=== PATIENT | female | born 1965 | race Caucasian/White ===

== ENCOUNTER 2018-12-07 16:49 | Emergency (ER) | payer BC, SELFPAY ==
--- OUTSIDE RECORDS SUMMARY | 2018-12-07 16:51 | XMS REPORT | Clinical Summary ---
:1965 Author Organization [facility] [employer] Address [address] [place] [address] Care Team Providers Name Role Phone Ondina, Frantz Alvarez MD Primary Care Provider Allergies Active Allergy Reactions Severity Noted Date Comments Pregabalin 02/16/2017 Penicillins 02/16/2017 Hydroxychloroquine 02/16/2017 Medications Medication Sig Dispensed Refills Start Date End Date Status acetaZOLAMIDE (DIAMOX) Take 250 mg by 0 Active 250 MG tablet mouth 2 (two) times a day. lisinopril Take 40 mg by 0 Active (PRINIVIL,ZESTRIL) 40 mouth 2 (two) mg tablet times a day. amitriptyline (ELAVIL) Take 10 mg by 0 Active 10 MG tablet mouth nightly. Take 2 tablet by mouth nightly DULoxetine (CYMBALTA) Take 60 mg by 0 Active 60 MG capsule mouth daily. Take 2 capsules by mouth daily Active Problems Problem Noted Date Hypertension 02/17/2017 Depression 02/17/2017 Connective tissue disease 02/17/2017 Morbid obesity with body mass index (BMI) of 45.0 to 49.9 in adult 02/17/2017 Social History Tobacco Use Types Packs/Day Years Used Date Never Smoker Alcohol Use Drinks/Week oz/Week Comments No Sex Assigned at Date Recorded Not on file Job Start Date Occupation Industry Not on file Not on file Not on file Travel History Travel Start Travel End No recent travel history available. Last Filed Vital Signs Not on file Plan of Treatment Health Maintenance Due Date Last Done Comments CERVICAL CANCER SCREENING 1985 BREAST CANCER SCREENING 2014 COLON CANCER SCREENING 2014 SHINGLES VACCINES (#1) 2014 INFLUENZA VACCINE 04/01/2019 Results Not on fileafter 12/06/2017 Insurance Payer Benefit Plan / Group Subscriber ID Type Phone Address BCBS BCBS CHOICE PPO/FEDERAL EMPL PPO xxxxxxxxxxxx PPO Advance Directives Patient has advance care planning documents, and code status on file. For more information, please contact:Joey [id number] [place] [address] Code Status Date Activated Date Inactivated Comments Full Code 02/16/2017 7:00 PM 02/19/2017 5:59 PM Code Status decision reached by: Patient
--- OUTSIDE RECORDS SUMMARY | 2018-12-07 16:52 | XMS REPORT | Continuity of Care Document ---
:1965 Author Organization Interface Problems Problem Status Onset Classification Date Comments Source Date Reported RECCURRENT Active [facility] PITUTARY ADENOMA [address] [place] [address] Center POSSIBLE CSF LEAK Active [address] dm Active Problem 04/15/2016 [facility] HTN (<span Active Problem 04/15/2016 [facility] ID="[id number]" Medical >Confirmed</span> Center ) Sleep apnea Active Problem 04/15/2016 [facility] CEREBROSPINAL Active [facility] FLUID LEAK [facility] Medications Medication Details Route Status Patient Ordering Order Source Instructions Provider Date meclizine 25 mg 25 mg=1 tab, Active [facility] oral tablet PO, TID, PRN 016 Medical for dizziness, Center X 20 day, # 60 tab, 0 Refill(s) acetaZOLAMIDE 250 mg=1 tab, Active [place] 250 mg oral PO, BID, # 120 016 Medical tablet tab, 0 Center Refill(s) Docusate Sodium 100 mg=1 cap, Active [place] 100 MG Oral PO, PRN, PRN 016 Medical Capsule as needed for Center constipation, # 50 cap, 0 Refill(s) Ondansetron 4 4 mg, PO, Q8H, Active [place] MG Oral Tablet PRN Nausea, X 016 Medical [Zofran] 15 day, # 45 Center tab, 0 Refill(s) Acetaminophen 2 tab, PO, Active [place] 300 MG / Q4H, PRN Pain 016 Medical Codeine Score 4-6, X 7 Center Phosphate 30 MG day, # 50 tab, Oral Tablet 0 Refill(s) [Tylenol with Codeine #3] heparin sodium, 5,000 unit, 1 No Longer [facility] porcine 2500 mL, Route: Active 016 Medical UNT/ML SUB-Q, Drug Center Injectable form: INJ, Solution Q8H, Dosing Weight 118.182, kg, Start date: 04/11/16 16:00:00 CDT, Duration: 30 day, Stop date: 05/11/16 8:00:00 CDTNotes: porcine heparin Morphine 1 mg, 0.5 mL, No Longer [facility] Route: IVP, Active [facility] Drug form: Center INJ, Q2H, Dosing Weight 118.182, kg, PRN Pain Score 7-10, Start date: 04/10/16 17:22:00 CDT, Duration: 30 day, Stop date: 05/10/16 17:21:00 CDTNotes: (Same as:MORPhine Sulfate) Acetaminophen 2 tab, Route: No Longer [facility] 325 MG / PO, Drug Form: Active [facility] Hydrocodone TAB, Dosing Center Bitartrate 10 Weight MG Oral Tablet 118.182, kg, Q4H, PRN Pain Score 4-6, Start date: 04/10/16 17:22:00 CDT, Duration: 30 day, Stop date: 05/10/16 17:21:00 CDTNotes: Do not exceed 4gm/day of acetaminophen. (Same as: [place]yer 325/10) Streptococcus 0.5 mL, Route: Inactive [facility] pneumoniae IM, Drug Form: [facility] serotype 1 INJ, Daily, Center capsular Start date: antigen 04/10/16 diphtheria 9:00:00 CDT, [id number] protein Duration: 1 conjugate doses or vaccine / times, Stop Streptococcus date: 04/10/16 pneumoniae 9:00:00 serotype 14 CDTNotes: capsular Lightly roll antigen vial (DO NOT diphtheria SHAKE) before [id number] protein administration conjugate . (Same as: vaccine / Prevnar 13) Streptococcus pneumoniae serotype 18C capsular antigen d Zofran 4 mg, Route: No Longer [facility] IV, Q8H, Active 016 Medical Dosing Weight Center 118.182, kg, Start date: 04/10/16 0:00:00 CDT, Duration: 30 day, Stop date: 05/09/16 16:00:00 CDT Saline Flush 10 ml, Route: No Longer [facility] 0.9% IVP, Drug Active 016 Medical Form: INJ, Center Dosing Weight 118.182, kg, Q12H, Start date: 04/09/16 21:00:00 CDT, Duration: 30 day, Stop date: 05/09/16 9:00:00 CDTNotes: (Same as: BD Posiflush) Senna 8.6 mg 8.6 mg, 1 tab, No Longer Gael oral tablet Route: PO, Active [facility] Drug Form: Center TAB, Dosing Weight 118.182, kg, Q12H, Start date: 04/09/16 21:00:00 CDT, Duration: 30 day, Stop date: 05/09/16 9:00:00 CDTNotes: (Same as: Senokot) Docusate 100 mg, 1 cap, No Longer [facility] Route: PO, Active [facility] Drug form: Center CAP, Q12H, Dosing Weight 118.182, kg, Start date: 04/09/16 21:00:00 CDT, Duration: 30 day, Stop date: 05/09/16 9:00:00 CDTNotes: (Same as: Colace) Acetaminophen 1 tab, Route: Inactive [facility] 325 MG / PO, Drug Form: [facility] Hydrocodone TAB, Dosing Center Bitartrate 10 Weight MG Oral Tablet 118.182, kg, Q4H, Start date: 04/09/16 20:00:00 CDT, Duration: 30 day, Stop date: 05/09/16 16:00:00 CDTNotes: (Same as: [place]yer 325/10) chlorhexidine 15 mL, Route: Inactive [facility] gluconate 1.2 Swab Mouth, [facility] MG/ML Mouthwash Q4H, Drug Center form: LIQ, Start date: 04/09/16 20:00:00 CDT, Duration: 30 day, Stop date: 05/09/16 16:00:00 CDTNotes: (Same As: Peridex) Zofran 4 mg, 2 mL, No Longer [facility] Route: IV, Active [facility] Drug form: Center INJ, Q8H, Dosing Weight 118.182, kg, PRN as needed for nausea/vomitin g, Start date: 04/09/16 18:37:00 CDT, Duration: 30 day, Stop date: 05/09/16 18:36:00 CDTNotes: (Same as: Zofran) MEDICATION WASTE Product Size: 4 mg Product Wasted: ___ mg sodium chloride 1,000 mL, No Longer [facility] 0.9% 1000 ml Rate: [address] [place] [address] INJ 1,000 mL ml/hr, Infuse Center over: 13.3 hr, Route: IV, Dosing Weight 118.182 kg, Total Volume: 1,000, Start date: 04/09/16 18:37:00 CDT, Duration: 30 day, Stop date: 05/09/16 18:36:00 CDT Dextrose 50% 6.25 gm, 12.5 No Longer [facility] Syringe mL, Route: Active [address] [place] [address] IVP, Drug Center Form: INJ, Dosing Weight 118.182, kg, PRN, PRN Abnormal Lab Result, Start date: 04/09/16 18:33:00 CDT, Duration: 30 day, Stop date: 05/09/16 18:32:00 CDT Regular 3 unit, 0.03 No Longer [facility] Insulin, Human mL, Route: Active [address] [place] [address] 100 UNT/ML SUB-Q, Drug Center Injectable form: SOLN, Solution PRN, Dosing Weight 118.182, kg, PRN Abnormal Lab Result, Start date: 04/09/16 18:33:00 CDT, Duration: 30 day, Stop date: 05/09/16 18:32:00 CDTNotes: (Same as: Humulin R) Roll in palms of hands gently; Do not shake vigorously. "single patient use only" (Restricted to patients requiring a dose > 60 units) WASTE: F/P - Black; E - Municipal Trash Bin Stable for 28 days at room temperature Expires in days from Date Zofran 2 mg, Route: Inactive [facility] PO, Drug form: [facility] TAB, PRN, Center Dosing Weight 118.182, kg, PRN Nausea, Priority: STAT, Start date: 04/09/16 18:12:00 CDT, Stop date: 05/09/16 18:11:00 CDT Insulin regular 99 mL, Rate: Inactive [facility] 100 unit + Start at 0.05 016 Medical sodium chloride units/kg/hour- Center 0.9% INJ 99 mL , Dosing Weight 118.182, kg, Route: IVPB, Total Volume: 100, Start Date: 04/09/16 18:10:00 CDT, Duration: 30 day, Stop date: 05/09/16 18:09:00 CDT, Replace Every: 24 hrNotes: (Same as: Humulin R and NovoLIN R) Dextrose 50% 25 gm, 50 mL, Inactive [facility] Syringe Route: IVP, [facility] Drug Form: Center INJ, Dosing Weight 118.182, kg, PRN, PRN Abnormal Lab Result, Start date: 04/09/16 18:10:00 CDT, Duration: 30 day, Stop date: 05/09/16 18:09:00 CDT Saline Flush 10 ml, Route: No Longer [facility] 0.9% IVP, Drug Active 016 Medical Form: INJ, Center Dosing Weight 118.182, kg, PRN, PRN Line Flush, Start date: 04/09/16 18:10:00 CDT, Duration: 30 day, Stop date: 05/09/16 18:09:00 CDTNotes: (Same as: BD Posiflush) Acetaminophen 1 tab, Route: No Longer [facility] 325 MG / PO, Drug Form: Active 016 Medical Hydrocodone TAB, Dosing Center Bitartrate 5 MG Weight Oral Tablet 118.182, kg, Q4H, PRN Pain Score 1-3, Start date: 04/09/16 18:10:00 CDT, Duration: 30 day, Stop date: 05/09/16 18:09:00 CDTNotes: (Same as: Sawyer 325/5) Labetalol 20 mg, 0.5 mL, No Longer [facility] Route: PO, Active 016 Medical Drug form: Center SUSP, PRN, Dosing Weight 118.182, kg, PRN Hypertension, Priority: STAT, Start date: 04/09/16 18:09:00 CDT, Stop date: 05/09/16 18:08:00 CDTNotes: Labetalol 300mg tab #16. Refrigerate. Shake well before using. Give with food. (Same as:Normodyne, Trandate) Compounded Product - formulation not commercially available Phenergan 25 mg, Route: Inactive [facility] IVPB, ONCE, 016 Medical Dosing Weight Center 118.182, kg, Priority: STAT, Start date: 04/09/16 17:53:00 CDT, Stop date: 04/09/16 17:53:00 CDT Dilaudid 2 mg, Route: Inactive [facility] IV, ONCE, 016 Medical Dosing Weight Center 118.182, kg, Start date: 04/09/16 17:53:00 CDT, Stop date: 04/09/16 17:53:00 CDT Dilaudid 1 mg, Route: Inactive [facility] IV, ONCE, 016 Medical Dosing Weight Center 118.182, kg, Start date: 04/09/16 15:55:00 CDT, Stop date: 04/09/16 15:55:00 CDT Dilaudid 0.5 mg, 0.25 Inactive [facility] mL, Route: 016 Medical IVP, Drug Center form: INJ, ONCE, Dosing Weight 118.182, kg, Priority: STAT, Start date: 04/09/16 14:11:00 CDT, Stop date: 04/09/16 14:11:00 CDTNotes: Same as: Dilaudid Ibuprofen 600 mg, 1 tab, Inactive [facility] Route: PO, 016 Medical Drug form: Center TAB, ONCE, Dosing Weight 118.182, kg, Priority: STAT, Start date: 04/09/16 14:11:00 CDT, Stop date: 04/09/16 14:11:00 CDTNotes: (Same as: Motrin) "Do Not Crush" Take with food. Sodium Chloride 1,000 mL, 500 Inactive [facility] 0.154 MEQ/ML ml/hr, Infuse [facility] Medical Injectable Over: 1 hr, Center Solution Route: IV, ONCE, Priority: STAT, Dosing Weight 118.182 kg, Start date: 04/09/16 11:18:00 CDT, Duration: 1 doses or times, Stop date: 04/09/16 11:18:00 CDT Allergies, Adverse Reactions, Alerts Substance Category Reaction Severity Reaction Status Date Comments Source type Reported penicillins Assertion Drug Active [facility] Plaquenil Assertion Drug Active [facility] Immunizations Immunization Date Given Site Status Last Comments Source Updated pneumococcal 04/10/2016 Right completed [place] [facility] 13-valent vaccine Deltoid [facility] Results Order Name Results Value Reference Date Interpretation Comments Source Range ENDOCRINOLO Prolactin 14.1 ng/mL 04/12 [facility] GY Lvl /2015 [facility] ENDOCRINOLO LH 29.18 04/12 [facility] GY mIU/mL [facility] ENDOCRINOLO FSH 44.0 mIU/mL 04/12 [facility] GY [facility] Sinus wo Sinus wo EXAM: CT SINUS WITHOUT CONTRAST 04/10 [facility] contrast CT contrast CT /2015 [facility] DATE: 04/10/2016 12:37 AM CDT Read by: Christos Laurent MD Dictated Date/time: 04/10/16 14:29 Electronically Signed by: Christos Laurent MD 04/10/16 15:12 FINAL REPORT INDICATION: 50 years old Female patient with history of Headache(s). COMPARISON: MRI brain dated 03/22/2016. TECHNIQUE: Axial noncontrast CT images of the sinuses, with coronal and sagittal reformats. FINDINGS: There is a lucent lesion within the basisphenoid and replacement of the right sphenoid sinus extending into the floor of the sella turcica resulting in destruction of the sellar floor. Based on enhancem ent of the lesion in the postcontrast sequences in the MRI from 03/22/2016 and diffusion restriction, this finding is concerning for malignancy. The paranasal sinuses are clear. The nasal septum is midline in position. The ostiomeatal complexes are patent bilaterally. The frontoethmoidal and sphenoethmoidal recesses are patent bilaterally. No ma stoid effusion is identified. The orbits are unremarkable. IMPRESSION: 1. Lytic lesion within the basisphenoid with displacement of the right sphenoid sinus and destruction of the floor of sella turcica. Based on enhancement of the lesion in the postcontrast sequences in the MRI from 03/22/2016 and diffusion restriction this finding is concerning for malignancy. Tissue sampling is recommended. BACTERIAL - MRSA by PCR Negative 04/10 [facility] SEROLOGY [facility] (04/09/16 7:33 PM) [place] [facility] Antibody Negative 04/09 [facility] RESULTS [facility] (04/09/16 9:54 AM) [place] [facility] ABO/Rh O NEG 04/09 [facility] RESULTS /2015 [facility] CARDIAC Troponin-I null 0.00 - 04/09 [facility] ENZYMES 0.40 /2015 [facility] CHEM PANEL eGFR 27 04/09 Result Comment: The eGFR is calculated using the CKD-EPI formula. In most young, healthy individuals the eGFR will be >90 mL/ min/1.73m2. The eGFR declines with age. An eGFR of 60-89 may be normal in [facility] mL/min/1.73 /2015 some populations, particularly the elderly, for whom the CKD-EPI formula has not been extensively validated. Use of the eGFR is not recommended in the following populations: [place] [address] Center Individuals with unstable creatinine concentrations, including patients and those with serious co-morbid conditions. Patients with extremes in muscle mass or diet. The data above are obtained from the National Kidney Disease Education Program (NKDEP) which additionally recommends that when the eGFR is used in patients with extremes of body mass index for purposes of drug dosing, the eGFR should be multiplied by the estimated BMI. CHEM PANEL Glucose Lvl 84 mg/dL 70 - 99 / [facility] CHEM PANEL Chloride Lvl 103 meq/L 95 - 109 04/09 [facility] CHEM PANEL Potassium 4.5 meq/L 3.5 - 5.1 04/09 [facility] Lvl /2015 [facility] CHEM PANEL BUN 56 mg/dL 7 - 22 04/09 [facility] CHEM PANEL Sodium Lvl 140 meq/L 135 - 145 04/09 [facility] CHEM PANEL Creatinine 2.09 mg/dL 0.50 - / [facility] Lvl 1.40 [facility] CHEM PANEL Calcium Lvl 8.8 mg/dL 8.5 - 10.5 04/09 [facility] CHEM PANEL CO2 30 meq/L 24 - 32 04/09 [facility] CHEM PANEL AGAP 11.5 meq/L 10.0 - 04/09 [place] 20.0 [facility] HEMATOLOGY Monocytes # 0.3 K/CMM 0.0 - 0.8 04/09 [facility] HEMATOLOGY Lymphocytes 1.4 K/CMM 1.0 - 5.5 04/09 [facility] # /2015 [facility] HEMATOLOGY Segs-Bands # 4.0 K/CMM 1.5 - 8.1 04/09 [facility] HEMATOLOGY Basophils 0.6 % 0.0 - 1.0 04/09 [facility] HEMATOLOGY Segs 67.3 % 45.0 - 04/09 [place] 75.0 /2015 [facility] HEMATOLOGY Eosinophils 3.5 % 0.0 - 4.0 04/09 [facility] HEMATOLOGY Monocytes 4.8 % 2.0 - 12.0 04/09 [facility] HEMATOLOGY Lymphocytes 23.8 % 20.0 - 08 [place] 40.0 /2015 [facility] HEMATOLOGY Eosinophils 0.2 K/CMM 0.0 - 0.5 04/09 /2015 [facility] HEMATOLOGY Platelet 266 K/CMM 133 - 450 04/09 [facility] HEMATOLOGY MPV 8.0 fL 7.4 - 10.4 04/09 [facility] HEMATOLOGY WBC 5.9 K/CMM 3.7 - 10.4 04/09 [facility] HEMATOLOGY RBC 4.03 M/CMM 4.20 - 04/09 [place] 5.40 /2015 [facility] HEMATOLOGY RDW 18.9 % 11.5 - 08 14.5 [facility] HEMATOLOGY MCHC 31.6 g/dL 32.0 - 04/09 36.0 [facility] HEMATOLOGY MCH 25.7 pg 27.0 - 04/09 31.0 [facility] HEMATOLOGY MCV 81.4 fL 80.0 - 04/09 98.0 [facility] HEMATOLOGY Hct 32.8 % 36.0 - 04/09 48.0 2016 [facility] HEMATOLOGY Hgb 10.4 g/dL 12.0 - 04/09 [facility] 16.0 2016 [facility] Vital Signs Vital Sign Value Date Comments Source Systolic (mm Hg) 114 04/12/2016 [facility] Diastolic (mm Hg) 66 04/12/2016 [facility] Respitory Rate 18 04/12/2016 [facility] Heart Rate 57 04/12/2016 [facility] Temperature Oral (F) 97.7 F 04/12/2016 [facility] Systolic (mm Hg) 128 04/12/2016 [facility] Diastolic (mm Hg) 71 04/12/2016 [facility] Heart Rate 60 04/12/2016 [facility] Respitory Rate 16 04/12/2016 [facility] Temperature Oral (F) 97.7 F 04/12/2016 [facility] Temperature Oral (F) 98.1 F 04/12/2016 [facility] Heart Rate 64 04/12/2016 [facility] Respitory Rate 16 04/12/2016 [facility] Systolic (mm Hg) 103 04/12/2016 [facility] Diastolic (mm Hg) 65 04/12/2016 [facility] Weight 118.182 04/09/2016 [facility] BMI Calculated 47.65 04/09/2016 [facility] Height 157.48 cm 04/09/2016 [facility] Encounters Location Location Encounter Encounter Reason Attending ADM DC Status Source Details Type Number For Provider Date Date Visit [facility] [id number] [facility]ant[facility] 04/08 04/12 [facility] [place] [place] /2015 [facility] Procedures Procedure Code Date Perfomer Comments Source Appendectomy [id number] [facility] Excision of lesion [id number] [facility] pituitary gland [facility]
--- OUTSIDE RECORDS SUMMARY | 2018-12-07 16:53 | XMS REPORT | Summary of Care ---
:1965 Author Organization [facility] Address [address], [place] [address]- Encounter HQ Viri(BRIANNA) [id number] Date(s): 04/08/16 - 04/12/[address] Professional Services provided by [facility] [place] [address]- Discharge Disposition: Home or Self Care Attending Physician: Ezequiel Sim MD Admitting Physician: Ezequiel Sim MD Referring Physician: Frantz Nj MD Vital Signs Most recent to oldest 1 2 3 [Reference Range]: Height 157.48 cm (04/09/16 8:52 AM) Temperature Oral [96.4-99.1 97.7 DegF 97.7 DegF 98.1 DegF DegF] (04/12/16 7:47 AM) (04/12/16 3:44 AM) (04/11/16 11:30 PM) Blood Pressure [90-140/60-90 114/66 mmHg 128/71 mmHg 103/65 mmHg mmHg] (04/12/16 7:47 AM) (04/12/16 3:44 AM) (04/11/16 11:30 PM) Respiratory Rate [14-20 BRMIN] 18 BRMIN 16 BRMIN 16 BRMIN (04/12/16 7:47 AM) (04/12/16 3:44 AM) (04/11/16 11:30 PM) Peripheral Pulse Rate [60-100 57 bpm 60 bpm 64 bpm bpm] *LOW* (04/12/16 3:44 AM) (04/11/16 11:30 PM) (04/12/16 7:47 AM) Weight 118.182 kg (04/09/16 8:52 AM) Body Mass Index 47.65 m2 (04/09/16 8:52 AM) Problem List Condition Effective Dates Status Health Status Informant dm(Confirmed) Active HTN (hypertension)(Confirmed) Active Sleep apnea(Confirmed) Active Allergies, Adverse Reactions, Alerts Substance Reaction Severity Status penicillins Active Plaquenil Active Medications acetaminophen-hydrocodone 325 mg-10 mg oral tablet 1 tab, Route: PO, Drug Form: TAB, Dosing Weight 118.182, kg, Q4H, Start date: 20:00:00 CDT,Duration: 30 day, Stop date: 05/09/16 16:00:00 CDT Notes: (Same as: [place] 325/10) Start Date: 04/09/16 Stop Date: 04/09/16 Status: Canceledacetaminophen-hydrocodone 325 mg-10 mg oral tablet 2 tab, Route: PO, Drug Form: TAB, Dosing Weight 118.182, kg, Q4H, PRN Pain Score 4-6, Start date: 04/10/16 17:22:00 CDT, Duration: 30 day, Stop date: 05/10 17:21:00 CDT Notes: Do not exceed 4gm/day of acetaminophen. (Same as: [place] 325/10) Start Date: 04/10/16 Stop Date: 04/12/16 Status: Discontinuedacetaminophen-hydrocodone 325 mg-5 mg oral tablet 1 tab, Route: PO, Drug Form: TAB, Dosing Weight 118.182, kg, Q4H, PRN Pain Score 1-3, Start date: 04/09/16 18:10:00 CDT, Duration: 30 day, Stop date: 05/09 18:09:00 CDT Notes: (Same as: [place] 325/5) Start Date: 04/09/16 Stop Date: 04/12/16 Status: DiscontinuedacetaZOLAMIDE 250 mg oral tablet 250 mg=1 tab, PO, BID, # 120 tab, 0 Refill(s) Start Date: 04/12/16 Stop Date: 06/11/16 Status: Orderedchlorhexidine topical 0.12% liquid 15 mL, Route: Swab Mouth, Q4H, Drug form: LIQ, Start date: 04/09/16 20:00:00 CDT , Duration: 30 day, Stop date: 05/09/16 16:00:00 CDT Notes: (Same As: Peridex) Start Date: 04/09/16 Stop Date: 04/09/16 Status: CanceledDextrose 50% Syringe 6.25 gm, 12.5 mL, Route: IVP, Drug Form: INJ, Dosing Weight 118.182, kg, PRN, PRN Abnormal Lab Result, Start date: 04/09/16 18:33:00 CDT, Duration: 30 day, Stop date: 05/09/16 18:32:00 CDT Start Date: 04/09/16 Stop Date: 04/12/16 Status: DiscontinuedDextrose 50% Syringe 25 gm, 50 mL, Route: IVP, Drug Form: INJ, Dosing Weight 118.182, kg, PRN, PRN Abnormal Lab Result, Start date: 04/09/16 18:33:00 CDT, Duration: 30 day, Stop date: 05/09/16 18:32:00 CDT Start Date: 04/09/16 Stop Date: 04/12/16 Status: DiscontinuedDextrose 50% Syringe 12.5 gm, 25 mL, Route: IVP, Drug Form: INJ, Dosing Weight 118.182, kg, PRN, PRN Abnormal Lab Result,Start date: 04/09/16 18:33:00 CDT, Duration: 30 day, Stop date: 05/09/16 18:32:00 CDT Start Date: 04/09/16 Stop Date: 04/12/16 Status: DiscontinuedDextrose 50% Syringe 25 gm, 50 mL, Route: IVP, Drug Form: INJ, Dosing Weight 118.182, kg, PRN, PRN Abnormal Lab Result, Start date: 04/09/16 18:10:00 CDT, Duration: 30 day, Stop date: 05/09/16 18:09:00 CDT Start Date: 04/09/16 Stop Date: 04/09/16 Status: DiscontinuedDextrose 50% Syringe 12.5 gm, 25 mL, Route: IVP, Drug Form: INJ, Dosing Weight 118.182, kg, PRN, PRN Abnormal Lab Result,Start date: 04/09/16 18:10:00 CDT, Duration: 30 day, Stop date: 05/09/16 18:09:00 CDT Start Date: 04/09/16 Stop Date: 04/09/16 Status: DiscontinuedDextrose 50% Syringe 6.25 gm, 12.5 mL, Route: IVP, Drug Form: INJ, Dosing Weight 118.182, kg, PRN, PRN Abnormal Lab Result, Start date: 04/09/16 18:10:00 CDT, Duration: 30 day, Stop date: 05/09/16 18:09:00 CDT Start Date: 04/09/16 Stop Date: 04/09/16 Status: DiscontinuedDilaudid 2 mg, Route: IV, ONCE, Dosing Weight 118.182, kg, Start date: 04/09/16 17:53:00 CDT, Stop date: 04/09/16 17:53:00 CDT Start Date: 04/09/16 Stop Date: 04/09/16 Status: CompletedDilaudid 0.5 mg, 0.25 mL, Route: IVP, Drug form: INJ, ONCE, Dosing Weight 118.182, kg, Priority: STAT, Start date: 04/09/16 14:11:00 CDT, Stop date: 04/09/16 14:11:00 CDT Notes: Same as: Dilaudid Start Date: 04/09/16 Stop Date: 04/09/16 Status: CompletedDilaudid 1 mg, Route: IV, ONCE, Dosing Weight 118.182, kg, Start date: 04/09/16 15:55:00 CDT, Stop date: 04/09/16 15:55:00 CDT Start Date: 04/09/16 Stop Date: 04/09/16 Status: Completeddocusate 100 mg, 1 cap, Route: PO, Drug form: CAP, Q12H, Dosing Weight 118.182, kg, Start date: 04/09/16 21:00:00 CDT, Duration: 30 day, Stop date: 05/09/16 9:00: 00 CDT Notes: (Same as: Colace) Start Date: 04/09/16 Stop Date: 04/12/16 Status: Discontinueddocusate sodium 100 mg oral capsule 100 mg=1 cap, PO, PRN, PRN as needed for constipation, # 50 cap, 0 Refill(s) Start Date: 04/12/16 Stop Date: 04/26/16 Status: Orderedheparin 5000 units/mL injectable solution 5,000 unit, 1 mL, Route: SUB-Q, Drug form: INJ, Q8H, Dosing Weight 118.182, kg, Start date: 04/11/1616:00:00 CDT, Duration: 30 day, Stop date: 05/11/16 8:00:00 CDT Notes: porcine heparin Start Date: 04/11/16 Stop Date: 04/12/16 Status: Discontinuedibuprofen 600 mg, 1 tab, Route: PO, Drug form: TAB, ONCE, Dosing Weight 118.182, kg, Priority: STAT, Start date: 04/09/16 14:11:00 CDT, Stop date: 04/09/16 14:11:00 CDT Notes: (Same as: Motrin)"Do Not Crush" Take with food. Start Date: 04/09/16 Stop Date: 04/09/16 Status: CompletedInsulin regular 100 unit + sodium chloride 0.9% INJ 99 mL 99 mL, Rate: Start at 0.05 units/kg/hour-, Dosing Weight 118.182, kg, Route: IVPB, Total Volume: 100, Start Date: 04/09/16 18:10:00 CDT, Duration: 30 day, Stop date: 05/09/16 18:09:00 CDT, Replace Every: 24 hr Notes: (Same as: Humulin R and NovoLIN R) Start Date: 04/09/16 Stop Date: 04/09/16 Status: Discontinuedinsulin regular 100 units/mL human recombinant 3 unit, 0.03 mL, Route: SUB-Q, Drug form: SOLN, PRN, Dosing Weight 118.182, kg, PRN Abnormal Lab Result, Start date: 04/09/16 18:33:00 CDT, Duration: 30 day, Stop date: 05/09/16 18:32:00 CDT Notes: (Same as: Humulin R) Roll in palms of hands gently; Do not shake vigorously. "single patientuse only"(Restricted to patients requiring a dose > 60 units)WASTE: F/P - Black; E - Municipal Trash Bin Stable for 28 days at room temperatureExpires in days from Date Start Date: 04/09/16 Stop Date: 04/12/16 Status: Discontinuedinsulin regular 100 units/mL human recombinant 5 unit, 0.05 mL, Route: SUB-Q, Drug form: SOLN, PRN, Dosing Weight 118.182, kg, PRN Abnormal Lab Result, Start date: 04/09/16 18:33:00 CDT, Duration: 30 day, Stop date: 05/09/16 18:32:00 CDT Notes: (Same as: Humulin R) Roll in palms of hands gently; Do not shake vigorously. "single patientuse only"(Restricted to patients requiring a dose > 60 units)WASTE: F/P - Black; E - Municipal Trash Bin Stable for 28 days at room temperatureExpires in days from Date Start Date: 04/09/16 Stop Date: 04/12/16 Status: Discontinuedinsulin regular 100 units/mL human recombinant 7 unit, 0.07 mL, Route: SUB-Q, Drug form: SOLN, PRN, Dosing Weight 118.182, kg, PRN Abnormal Lab Result, Start date: 04/09/16 18:33:00 CDT, Duration: 30 day, Stop date: 05/09/16 18:32:00 CDT Notes: (Same as: Humulin R) Roll in palms of hands gently; Do not shake vigorously. "single patientuse only"(Restricted to patients requiring a dose > 60 units)WASTE: F/P - Black; E - Municipal Trash Bin Stable for 28 days at room temperatureExpires in days from Date Start Date: 04/09/16 Stop Date: 04/12/16 Status: Discontinuedlabetalol 20 mg, 0.5 mL, Route: PO, Drug form: SUSP, PRN, Dosing Weight 118.182, kg, PRN Hypertension, Priority: STAT, Start date: 04/09/16 18:09:00 CDT, Stop date: 04/16 18:08:00 CDT Notes: Labetalol 300mg tab #16. Refrigerate. Shake well before using. Give with food. (Same as:Normodyne, Trandate) Compounded Product - formulation not commercially available Start Date: 04/09/16 Stop Date: 04/12/16 Status: Discontinuedmeclizine 25 mg oral tablet 25 mg=1 tab, PO, TID, PRN for dizziness, X 20 day, # 60 tab, 0 Refill(s) Start Date: 04/12/16 Stop Date: 05/02/16 Status: Orderedmorphine Sulfate 1 mg, 0.5 mL, Route: IVP, Drug form: INJ, Q2H, Dosing Weight 118.182, kg, PRN Pain Score 7-10, Startdate: 04/10/16 17:22:00 CDT, Duration: 30 day, Stop date: 05/10/16 17:21:00 CDT Notes: (Same as:MORPhine Sulfate) Start Date: 04/10/16 Stop Date: 04/12/16 Status: DiscontinuedNS (Bolus) IV 1,000 mL, 500 ml/hr, Infuse Over: 1 hr, Route: IV, ONCE, Priority: STAT, Dosing Weight 118.182 kg, Start date: 04/09/16 11:18:00 CDT, Duration: 1 doses or times , Stop date: 04/09/16 11:18:00 CDT Start Date: 04/09/16 Stop Date: 04/09/16 Status: CompletedPhenergan 25 mg, Route: IVPB, ONCE, Dosing Weight 118.182, kg, Priority: STAT, Start date : 04/09/16 17:53:00 CDT, Stop date: 04/09/16 17:53:00 CDT Start Date: 04/09/16 Stop Date: 04/09/16 Status: Completedpneumococcal 13-valent vaccine 0.5 mL, Route: IM, Drug Form: INJ, Daily, Start date: 04/10/16 9:00:00 CDT, Duration: 1 doses or times, Stop date: 04/10/16 9:00:00 CDT Notes: Lightly roll vial (DO NOT SHAKE) before administration. (Same as: Prevnar 13) Start Date: 04/10/16 Stop Date: 04/10/16 Status: CompletedSaline Flush 0.9% 10 ml, Route: IVP, Drug Form: INJ, Dosing Weight 118.182, kg, PRN, PRN Line Flush, Start date: 04/09/16 18:10:00 CDT, Duration: 30 day, Stop date: 05/09/16 18:09:00 CDT Notes: (Same as: BD Posiflush) Start Date: 04/09/16 Stop Date: 04/12/16 Status: DiscontinuedSaline Flush 0.9% 10 ml, Route: IVP, Drug Form: INJ, Dosing Weight 118.182, kg, Q12H, Start date: 04/09/16 21:00:00 CDT, Duration: 30 day, Stop date: 05/09/16 9:00:00 CDT Notes: (Same as: BD Posiflush) Start Date: 04/09/16 Stop Date: 04/12/16 Status: DiscontinuedSenna 8.6 mg oral tablet 8.6 mg, 1 tab, Route: PO, Drug Form: TAB, Dosing Weight 118.182, kg, Q12H, Start date: 04/09/16 21:00:00 CDT, Duration: 30 day, Stop date: 05/09/16 9:00: 00 CDT Notes: (Same as: Junior) Start Date: 04/09/16 Stop Date: 04/12/16 Status: Discontinuedsodium chloride 0.9% 1000 ml INJ 1,000 mL 1,000 mL, Rate: 75 ml/hr, Infuse over: 13.3 hr, Route: IV, Dosing Weight 118.182 kg, Total Volume: 1,000, Start date: 04/09/16 18:37:00 CDT, Duration: 30 day, Stop date: 05/09/16 18:36:00 CDT Start Date: 04/09/16 Stop Date: 04/12/16 Status: DiscontinuedTylenol with Codeine #3 oral tablet 2 tab, PO, Q4H, PRN Pain Score 4-6, X 7 day, # 50 tab, 0 Refill(s) Start Date: 04/12/16 Stop Date: 04/19/16 Status: OrderedZofran 4 mg, 2 mL, Route: IV, Drug form: INJ, Q8H, Dosing Weight 118.182, kg, PRN as needed for nausea/vomiting, Start date: 04/09/16 18:37:00 CDT, Duration: 30 day , Stop date: 05/09/16 18:36:00 CDT Notes: (Same as: Zofran) MEDICATION WASTE Product Size: 4 mgProduct Wasted: ___ mg Start Date: 04/09/16 Stop Date: 04/12/16 Status: DiscontinuedZofran 4 mg, Route: IV, Q8H, Dosing Weight 118.182, kg, Start date: 04/10/16 0:00:00 CDT, Duration: 30 day,Stop date: 05/09/16 16:00:00 CDT Start Date: 04/10/16 Stop Date: 04/09/16 Status: CanceledZofran 2 mg, Route: PO, Drug form: TAB, PRN, Dosing Weight 118.182, kg, PRN Nausea, Priority: STAT, Start date: 04/09/16 18:12:00 CDT, Stop date: 05/09/16 18:11:00 CDT Start Date: 04/09/16 Stop Date: 04/09/16 Status: DiscontinuedZofran 4 mg oral tablet 4 mg, PO, Q8H, PRN Nausea, X 15 day, # 45 tab, 0 Refill(s) Start Date: 04/12/16 Stop Date: 04/27/16 Status: Ordered Results BLOOD BANK RESULTS Most recent to oldest [Reference Range]: 1 ABO/Rh O NEG *Unknown* (04/09/16 9:54 AM) Antibody Scrn Negative (04/09/16 9:54 AM) ELECTROLYTES Most recent to oldest [Reference Range]: 1 Sodium Lvl [135-145 mEq/L] 140 mEq/L (04/09/16 9:54 AM) Potassium Lvl [3.5-5.1 mEq/L] 4.5 mEq/L (04/09/16 9:54 AM) Chloride Lvl [95-109 mEq/L] 103 mEq/L (04/09/16 9:54 AM) CO2 [24-32 mEq/L] 30 mEq/L (04/09/16 9:54 AM) AGAP [10.0-20.0 mEq/L] 11.5 mEq/L (04/09/16 9:54 AM) CHEM PANEL Most recent to oldest [Reference Range]: 1 Creatinine Lvl [0.50-1.40 mg/dL] 2.09 mg/dL *HI* (04/09/16 9:54 AM) eGFR 27 mL/min/1.73m2 1 *NA* (04/09/16 9:54 AM) BUN [7-22 mg/dL] 56 mg/dL *HI* (04/09/16 9:54 AM) Glucose Lvl [70-99 mg/dL] 84 mg/dL (04/09/16 9:54 AM) Calcium Lvl [8.5-10.5 mg/dL] 8.8 mg/dL (04/09/16 9:54 AM) 1Result Comment: The eGFR is calculated using the CKD-EPI formula. In most young , healthy individualsthe eGFR will be >90 mL/min/1.73m2. The eGFR declines with age. An eGFR of 60-89 may be normal in some populations, particularly the elderly, for whom the CKD-EPI formula has not been extensively validated. Use of the eGFR is not recommended in the following populations: Individuals with unstable creatinine concentrations, including patients and those with serious co-morbid conditions. Patients with extremes in muscle mass or diet. The data above are obtained from the National Kidney Disease Education Program ( NKDEP) which additionally recommends that when the eGFR is used in patients with extremes of body mass index for purposesof drug dosing, the eGFR should be multiplied by the estimated BMI.CARDIAC ENZYMES Most recent to oldest [Reference Range]: 1 Troponin-I [0.00-0.40 ng/mL] <0.02 ng/mL (04/09/16 9:54 AM) ENDOCRINOLOGY Most recent to oldest [Reference Range]: 1 LH 29.18 mIU/mL *NA* (04/12/16 11:02 AM) FSH 44.0 mIU/mL *NA* (04/12/16 11:02 AM) Prolactin Lvl 14.1 ng/mL *NA* (04/12/16 11:02 AM) HEMATOLOGY Most recent to oldest [Reference Range]: 1 WBC [3.7-10.4 K/CMM] 5.9 K/CMM (04/09/16 9:54 AM) RBC [4.20-5.40 M/CMM] 4.03 M/CMM *LOW* (04/09/16 9:54 AM) Hgb [12.0-16.0 g/dL] 10.4 g/dL *LOW* (04/09/16 9:54 AM) Hct [36.0-48.0 %] 32.8 % *LOW* (04/09/16 9:54 AM) MCV [80.0-98.0 fL] 81.4 fL (04/09/16 9:54 AM) MCH [27.0-31.0 pg] 25.7 pg *LOW* (04/09/16 9:54 AM) MCHC [32.0-36.0 g/dL] 31.6 g/dL *LOW* (04/09/16 9:54 AM) RDW [11.5-14.5 %] 18.9 % *HI* (04/09/16 9:54 AM) Platelet [133-450 K/CMM] 266 K/CMM (04/09/16 9:54 AM) MPV [7.4-10.4 fL] 8.0 fL (04/09/16 9:54 AM) Segs [45.0-75.0 %] 67.3 % (04/09/16 9:54 AM) Lymphocytes [20.0-40.0 %] 23.8 % (04/09/16 9:54 AM) Monocytes [2.0-12.0 %] 4.8 % (04/09/16 9:54 AM) Eosinophils [0.0-4.0 %] 3.5 % (04/09/16 9:54 AM) Basophils [0.0-1.0 %] 0.6 % (04/09/16 9:54 AM) Segs-Bands # [1.5-8.1 K/CMM] 4.0 K/CMM (04/09/16 9:54 AM) Lymphocytes # [1.0-5.5 K/CMM] 1.4 K/CMM (04/09/16 9:54 AM) Monocytes # [0.0-0.8 K/CMM] 0.3 K/CMM (04/09/16 9:54 AM) Eosinophils # [0.0-0.5 K/CMM] 0.2 K/CMM (04/09/16 9:54 AM) BACTERIAL - SEROLOGY Most recent to oldest [Reference Range]: 1 MRSA by PCR Negative (04/09/16 7:33 PM) Immunizations Given and Recorded Vaccine Date Status Refusal Reason pneumococcal 13-valent vaccine 04/10/16 Given Procedures Procedure Date Related Diagnosis Body Site Appendectomy Excision of lesion of pituitary gland Social History Social History Type Response Alcohol Never, Previous treatment: None. Smoking Status Never smoker; Exposure to Tobacco Smoke None; Cigarette Smoking Last 365 Days No; Reg Smoking Cessation Counseling No Assessment and Plan Extracted from: Title: Clinical Document Author: Mumtaz Burt MD Date: 04/12/16 ENT Progress Note S: LISA overnight, no drainage from nose; denies salty/metallic PND O: AFVSS; NAD Gen: awake, alert, no distress HEENT: no nasal drainage OP clear A/P: 50yoF with history of pituitary adenoma s/p transphenoidal resection 1 year ago , presents with concern for recurrenct of pituitary adenoma and possible CSF leak. Bedside endoscopy 04/09 showed no active leak -No current drainage -If patient has clear rhinorrhea please send for beta-2 -Will discuss plan with neurosurgery -No plans in place for surgery at this time page with questions, concerns. Mumtaz Burt MD Resident, Department of Otorhinolaryngology - Head and Neck Surgery Adult ENT Pager: [phone] Pediatric ENT Pager: [phone] Addendum by Mumtaz Burt MD on Discussed with staff. No plans for surgery at this time. 04/12/2016 07:38 D/C home with diamoxx 250mg BID for 8 weeks. Needs follow up with PCP to monitor electrolytes Send with tube to collect beta 2. If leaking, collect in tube, place on ice, then send to lab for analysis Follow up with Dr. Santana in 2-3 weeks. Extracted from: Title: Ophthalmology Consult Note Author: Sandy Martinez MD Date: 04/09/16 Ophthalmology Consultation Note Patient Name: Luzma Dominguez MR#: [id number] Room: ED 9 Requesting Team: ED Date of Consult: 04/09/16 Consulting Attending: Amparo Lewis MD Consulting Resident: Sandy Martinez MD, MPH Reason for Consult: blurry vision History of Present Illness: Ms. Dominguez is a 50 year-old woman with a history of DM, HTN and pituitary adenoma s/p resection 1 year ago via transnasal, transphenoidal approach in [place] who was transferred from [facility] for concern for recurrence of her pituitary mass. Ophthalmology was consulted due to a complaint of blurry vision. She states that when she had the pituitary adenoma 1 year ago, she never experienced any vision lo ss. Has never seen an cartographic technician or had a dilated eye exam. States that she is concerned because she has been bumping into objects on her left side for a few months and she feels as though there is a oneil film over her vision. No floaters, flashes of light, eye discharge, or eye pain. Review of Systems: Constitutional Symptoms: no fever, weight changes. Eyes: as above Ears, Nose, Mouth, Throat: + rhinorrhea. no hearing changes, or oral lesions. Cardiovascular: no chest pain Respiratory: No cough or shortness of breath. Gastrointestinal: no nausea, vomiting, diarrhea Genitourinary: no changes in UOP. Hematopoietic/Lymphatic: no easy bruising, LAD. Musculoskeletal: no generalized pain. Integumentary: no rash Neurological: +headache. no weakness. Psychiatry: no behavioral change. Allergy/Immune system: No allergies. Past Ocular History: no previous diagnoses Past Medical History: DM HTN pituitary adenoma Past Surgical History: Excision of lesion of pituitary gland Appendectomy Social History: No cigarette, alcohol, or drug use. Family History: No known ocular disease. Allergies: Plaquenil, penicillins Medications: none Scheduled Meds (3): 04/09/16 docusate 100 mg PO Q12H 04/09/16 senna (Senna 8.6 mg oral tablet) 8.6 mg PO Q12H 04/09/16 sodium chloride (Saline Flush 0.9%) 10 ml IVP Q12H Continuous Infusions (1): 04/09/16 sodium chloride 0.9% 1000 ml INJ 1,000 mL 1,000 mL 75 ml/hr Eye Medication: none Examination: Neuro/MS: Patient is alert and oriented to person, place, and time. Mental status is grossly normal. Visual Acuity (with correction) Tested on a Near Card/Distance Vision: Right Eye: 20/20 Left Eye: 20/20 Confrontation Visual Field: Full both eyes. Extraocular motility: Full both eyes. Orthophoric in primary gaze Pupils: 4->3mm in both eyes with normal direct and consensual response. No afferent pupillary defect noted. Intraocular Pressure: Symmetric and normal to palpation both eyes. Right eye 15 , Left eye 14 using the Tonopen. External: Within normal limits both eyes. ANTERIOR SEGMENT EXAM: Lids/Lashes/Lacrimals: As above. Conjunctiva/Sclera: White and quiet both eyes. Cornea: Clear both eyes. Anterior Chamber: Formed and grossly clear both eyes. Iris: Round and reactive both eyes. Lens: Clear both eyes. Dilated Fundus Exam (Both eyes dilated with phenylephrine 2.5% and tropicamide 1% @4:30PM): Optic Nerve: pink, sharp margins, flat both eyes C:D Ratio: 0.2 both eyes Posterior Segment: macula, vessels, periphery within normal limits both eyes Procedures Performed: none Diagnoses/Recommendation: 1. Pituitary adenoma - no gross visual field cuts on confrontational visual langford, however needs further evaluation with automated peripmetry as an outpatient Please call for a follow-up appointment at the [facility] with Dr. Lewis 1-2 weeks after discharge. (Located: [address] [place] [address], 18th floor; Appt #: [phone]) Please call if any changes develop. Sandy Martinez MD, MPH PGY2, Ophthalmology Pager #[phone] Attending Note: I have personally seen and evaluated the patient, and completed the core portions of the exam. I agree with and participated in the development of the assessment and plan as outlined above by the reside nt physician. MRI brain shows no evidence of visual pathway involvement by her pituitary lesion. Confrontation langford are grossly full. Will defer management of tumor to neurosurgery and recommend follo w up exam with ophthalmology upon discharge. Please call with any questions or concerns. Amparo Lewis MD MSO# [id number] Attending Physician, Ophthalmology
[2018-12-07 17:31] LABS: Absolute Lymphocytes (CBC) 1.4 K/uL (0.7-4.9); Absolute Monocytes 0.4 K/uL (0.1-1.3); Basophils % 0.4 % (0-1.3); Eosinophils % 1.8 % (0-4.4); Hematocrit 33.1 % (36.0-45.0); Lymphocytes % 17.9 % (15.3-44.8); MPV 7.3 fL (7.6-11.3); Monocytes % 5.2 % (3.3-12.3); RBC Red Blood Cell Count 4.01 M/uL (3.86-4.86)
[2018-12-07 17:49] LABS: BUN Blood Urea Nitrogen 16 mg/dL (7-18); Bicarbonate 29 mmol/L (21-32); Glucose Level 100 mg/dL (74-106); NT PRO-BNP 333 pg/mL (<125); Potassium 3.9 mmol/L (3.5-5.1); Sodium Level 142 mmol/L (136-145); Troponin (Emerg Dept Use Only) < 0.02 ng/mL (0.0-0.045)
--- NOTE | 2018-12-07 18:36 | ER ---
Nurse's Notes [facility] Name: Luzma Lamar Age: 52 yrs Sex: Female : 1965 Arrival Date: 12/07/2018 Time: 16:51 Bed 7 Private MD: Diagnosis: Radiculopathy, cervical region;Muscle spasm Presentation: 12/07 17:06 Presenting complaint: Patient states: L arm pain that radiates up towards L side of ss chest with tingling to fingers that began yesterday morning. Transition of care: patient was not received from another setting of care. Onset of symptoms was December 06, 2018. Risk Assessment: Do you want to hurt yourself or someone else? Patient reports no desire to harm self or others. Initial Sepsis Screen: Does the patient meet any 2 criteria? No. Patient's initial sepsis screen is negative. Does the patient have a suspected source of infection? No. Patient's initial sepsis screen is negative. Care prior to arrival: None. 17:06 Method Of Arrival: Ambulatory ss 17:06 Acuity: ELIANA 3 ss Historical: - Allergies: 17:08 Lyrica; ss 17:08 PENICILLINS; ss 17:08 Plaquenil; ss - PMHx: 17:08 Back pain; Depression; Diabetes - NIDDM; GERD; Hypertension; Migraines; Ulcers; ss 17:10 Connective tissue Disease; Cervical disc problem; aa5 - PSHx: 17:08 ; Appendectomy; Patuitary tumor removel; Knee surgery; ss - Immunization history:: Adult Immunizations up to date. - Social history:: Smoking status: Patient/guardian denies using tobacco. - Ebola Screening: : Patient denies exposure to infectious person Patient denies travel to an Ebola-affected area in the 21 days before illness onset. - Family history:: not pertinent. - Hospitalizations: : No recent hospitalization is reported. Screenin:10 Abuse screen: Denies threats or abuse. Nutritional screening: No deficits noted. aa5 Tuberculosis screening: No symptoms or risk factors identified. Fall Risk None identified. Assessment: 17:10 General: Appears uncomfortable, Behavior is calm, cooperative. Pain: Complains of pain aa5 in left shoulder and left anterior aspect of chest Pain radiates to left arm Pain currently is 6 out of 10 on a pain scale. Quality of pain is described as sharp, shooting, Pt reports numbness to left little finger and left ring finger Pain began 1 day ago. Is episodic, lasting a few seconds. Neuro: Level of Consciousness is awake, alert, obeys commands, Oriented to person, place, time, situation. Cardiovascular: Heart tones S1 S2 present Murmur present Rhythm is regular. Respiratory: Airway is patent Respiratory effort is even, unlabored, Respiratory pattern is regular, symmetrical, Breath sounds are clear bilaterally. : No signs and/or symptoms were reported regarding the genitourinary system. EENT: No signs and/or symptoms were reported regarding the EENT system. Derm: Skin is pink, warm \T\ dry. Musculoskeletal: Range of motion: intact in all extremities. 17:10 GI: Abdomen is obese, Bowel sounds present X 4 quads. Abd is soft and non tender X 4 aa5 quads. 18:15 Reassessment: Patient is alert, oriented x 3, equal unlabored respirations, skin aa5 warm/dry/pink. Patient states feeling better. 18:15 Pain: Pain currently is 5 out of 10 on a pain scale. aa5 19:05 Reassessment: Patient is alert, oriented x 3, equal unlabored respirations, skin aa5 warm/dry/pink. Vital Signs: 17:08 BP 166 / 83; Pulse 83; Resp 16; Temp 97.5(TE); Pulse Ox 98% on R/A; Weight 119.29 kg; ss Height 5 ft. 3 in. (160.02 cm); Pain 6/10; 18:15 BP 149 / 65; Pulse 71; Resp 13; Pulse Ox 96% ; sv 17:08 Body Mass Index 46.59 (119.29 kg, 160.02 cm) ED Course: 16:51 Patient arrived in ED. rg4 16:59 Loki Judge MD is Attending Physician. rn 17:07 Triage completed. ss 17:08 Arm band placed on right wrist. ss 17:09 Hannah Norman, DEBBIE is Primary Nurse. aa5 17:10 Patient has correct armband on for positive identification. Placed in gown. Bed in low aa5 position. Call light in reach. Side rails up X2. picker and sorter load and unload on. Pulse ox on. NIBP on. 17:13 EKG done, by can technician. reviewed by Loki Judge MD. Initial lab(s) drawn, by me. [email or web address] Inserted saline lock: 22 gauge in right antecubital area, using aseptic technique. Blood collected. 17:58 No provider procedures requiring assistance completed. Patient maintains SpO2 aa5 saturation greater than 95% on room air. 18:40 XRAY Chest (1 view) In Process Unspecified. EDMS 19:05 IV discontinued, intact, bleeding controlled, No redness/swelling at site. Pressure aa5 dressing applied. Administered Medications: 17:25 Drug: morphine 4 mg Route: IVP; Site: right antecubital; aa5 17:30 Follow up: Response: No adverse reaction aa5 18:47 Drug: Decadron - Dexamethasone 10 mg Route: IVP; Site: left antecubital; aa5 19:00 Follow up: Response: No adverse reaction aa5 Outcome: 18:35 Discharge ordered by . rn 19:05 Discharged to home ambulatory, with family. aa5 19:05 Condition: improved 19:05 Discharge instructions given to patient, Instructed on discharge instructions, follow up and referral plans. medication usage, Demonstrated understanding of instructions, follow-up care, medications, Prescriptions given X 3. 19:19 Patient left the ED. aa5 Signatures: Dispatcher [employer] EDMS Dalia Tomás jb1 Rachel Aleman, Loki Majano RN, MD MD rn Calderon, Audri, RN RN aa5 Jessica Nunn RN RN ss Garcia, Rubi rg4 Edinson Redmond ag4 Corrections: (The following items were deleted from the chart) 17:58 17:00 General: Appears uncomfortable, Behavior is calm, cooperative, aa5 aa5 17:58 17:00 Pain: Complains of pain in left shoulder and left anterior aspect of chest Pain aa5 radiates to left arm Pain Quality of pain is described as sharp, shooting, Pt reports numbness to left little finger and left ring finger Pain began 1 day ago. Is episodic, lasting a few seconds. aa5 17:58 17:00 Neuro: Level of Consciousness is awake, alert, obeys commands, Oriented to aa5 person, place, time, situation, aa5 17:58 17:00 Cardiovascular: Heart tones S1 S2 present Murmur present Rhythm is regular aa5 aa5 17:58 17:00 Respiratory: Airway is patent Respiratory effort is even, unlabored, Respiratory aa5 pattern is regular, symmetrical, Breath sounds are clear bilaterally. aa5 17:58 17:00 GI: Abdomen is obese, Bowel sounds present X 4 quads. Abd is soft and non tender aa5 X 4 quads. aa5 17:58 17:00 : No signs and/or symptoms were reported regarding the genitourinary system. aa5aa5 17:58 17:00 EENT: No signs and/or symptoms were reported regarding the EENT system. aa5 aa5 17:58 17:00 Derm: Skin is pink, warm \T\ dry. aa5 aa5 17:58 17:00 Musculoskeletal: Range of motion: intact in all extremities, aa5 aa5 19:29 19:08 Removal of peripheral IV. Catheter intact, dressing applied. ag4 aa5
--- NOTE | 2018-12-07 18:36 | EDPHYS ---
Physician Documentation [facility] Name: Luzma Lamar Age: 52 yrs Sex: Female : 1965 Arrival Date: 12/07/2018 Time: 16:51 Bed 7 Private MD: ED Physician Loki Judge HPI: 12/07 17:57 This 52 yrs old Female presents to ER via Ambulatory with complaints of Arm rn pain, numbness. 18:06 The patient or guardian complains of pain. The complaints affect the left arm. Onset: rn The symptoms/episode began/occurred at an unknown time. Treatment prior to arrival includes: no previous treatment. Modifying factors: The symptoms are alleviated by nothing. the symptoms are aggravated by movement. Severity of symptoms: At their worst the symptoms were mild, in the emergency department the symptoms are unchanged. The patient has experienced similar episodes in the past. Reports has been having left arm pain and shoulder pain "for awhile", reports over last 2 days increased pain but now shoots down left arm, assoc with tingling, and radiates to chest. Thinks pain is more from arm. Reports having negative heart cath 1.5 years ago and doesn't have any known heart problems. Arm hurts more when straightening it. Also reports has known cervical disc herniations for a long time and has a connective tissue disease that she is not sure of the name. . Historical: - Allergies: 17:08 Lyrica; ss 17:08 PENICILLINS; ss 17:08 Plaquenil; ss - PMHx: 17:08 Back pain; Depression; Diabetes - NIDDM; GERD; Hypertension; Migraines; Ulcers; ss 17:10 Connective tissue Disease; Cervical disc problem; aa5 - PSHx: 17:08 ; Appendectomy; Patuitary tumor removel; Knee surgery; ss - Immunization history:: Adult Immunizations up to date. - Social history:: Smoking status: Patient/guardian denies using tobacco. - Ebola Screening: : Patient denies exposure to infectious person Patient denies travel to an Ebola-affected area in the 21 days before illness onset. - Family history:: not pertinent. - Hospitalizations: : No recent hospitalization is reported. ROS: 18:06 Constitutional: Negative for fever, chills, and weight loss, Eyes: Negative for injury, rn pain, redness, and discharge, Neck: Negative for injury, pain, and swelling, Cardiovascular: Negative for palpitations, and edema, Respiratory: Negative for shortness of breath, cough, wheezing, and pleuritic chest pain, Abdomen/GI: Negative for abdominal pain, vomiting, diarrhea, and constipation, MS/Extremity: Negative for injury and deformity, Skin: Negative for injury, rash, and discoloration, Neuro: + tingling of left arm Exam: 17:23 ECG was reviewed by the Attending Physician. rn 18:06 Constitutional: This is a well developed, well nourished patient who is awake, alert, rn and in no acute distress. Head/Face: Normocephalic, atraumatic. Eyes: Pupils equal round and reactive to light, extra-ocular motions intact. Lids and lashes normal. Conjunctiva and sclera are non-icteric and not injected. Cornea within normal limits. Periorbital areas with no swelling, redness, or edema. Neck: Trachea midline, no thyromegaly or masses palpated, and no cervical lymphadenopathy. Supple, full range of motion without nuchal rigidity, or vertebral point tenderness. No Meningismus. Cardiovascular: Regular rate and rhythm. No pulse deficits. Respiratory: Lungs have equal breath sounds bilaterally, clear to auscultation. No increased work of breathing, no retractions or nasal flaring. Skin: Warm, dry with normal turgor. Normal color with no rashes, no lesions, and no evidence of cellulitis. MS/ Extremity: Pulses equal, no cyanosis. Neurovascular intact. Full, normal range of motion. Equal circumference. Painful ROM left arm without skin changes or deformity. Neuro: Awake and alert, GCS 15, oriented to person, place, time, and situation. Cranial nerves II-XII grossly intact. Motor strength 5/5 in all extremities. Sensory grossly intact. Cerebellar exam normal. Vital Signs: 17:08 BP 166 / 83; Pulse 83; Resp 16; Temp 97.5(TE); Pulse Ox 98% on R/A; Weight 119.29 kg; ss Height 5 ft. 3 in. (160.02 cm); Pain 6/10; 18:15 BP 149 / 65; Pulse 71; Resp 13; Pulse Ox 96% ; sv 17:08 Body Mass Index 46.59 (119.29 kg, 160.02 cm) ss MDM: 16:59 Patient medically screened. rn 18:32 Differential diagnosis: radiculopathy, muscle spasm. Data reviewed: vital signs, nurses rn notes, lab test result(s), EKG, radiologic studies, plain films, and as a result, I will discharge patient. Counseling: I had a detailed discussion with the patient and/or guardian regarding: the historical points, exam findings, and any diagnostic results supporting the discharge/admit diagnosis, lab results, radiology results, the need for outpatient follow up, to return to the emergency department if symptoms worsen or persist or if there are any questions or concerns that arise at home. Response to treatment: the patient's symptoms have mildly improved after treatment, and as a result, I will discharge patient. Special discussion: I discussed with the patient/guardian in detail that at this point there is no indication for admission to the hospital. It is understood, however, that if the symptoms persist or worsen the patient needs to return immediately for re-evaluation. ED course: Trop and ecg normal, improved with pain meds, no acute findings on cxr, had negative cath 1.5 years ago and no pain from then to now. Most likely radiculopathy with muscle spasm given history of neck disc problems and connective tissue disease. Will dc home with steroids, muscle relaxers and pcp/cardiology f/u. . 12/07 17:01 Order name: Basic Metabolic Panel; Complete Time: 17:56 rn 12/07 17:01 Order name: CBC with Diff; Complete Time: 17: rn 12/07 17:01 Order name: NT PRO-BNP; Complete Time: 17: rn 12/07 17:01 Order name: Troponin (emerg Dept Use Only); Complete Time: 17:56 rn 12/07 17:01 Order name: XRAY Chest (1 view) rn 12/07 17:01 Order name: EKG; Complete Time: 17:02 rn 12/07 17:01 Order name: Cardiac monitoring; Complete Time: 17: rn 12/07 17:01 Order name: EKG - Nurse/Tech; Complete Time: 17: rn 12/07 17:01 Order name: IV Saline Lock; Complete Time: 17: rn 12/07 17:01 Order name: Labs collected and sent; Complete Time: 17: rn 12/07 17:01 Order name: O2 Per Protocol; Complete Time: 17:14 rn 12/07 17:01 Order name: O2 Sat Monitoring; Complete Time: 17:14 rn EC:23 Rate is 77 beats/min. Rhythm is regular. QRS [place] is Normal. RI interval is normal. QRS rn interval is normal. QT interval is normal. No Q waves. T waves are Normal. No ST changes noted. Clinical impression: Normal ECG. Interpreted by me. Administered Medications: 17:25 Drug: morphine 4 mg Route: IVP; Site: right antecubital; aa5 17:30 Follow up: Response: No adverse reaction aa5 18:47 Drug: Decadron - Dexamethasone 10 mg Route: IVP; Site: left antecubital; aa5 19:00 Follow up: Response: No adverse reaction aa5 Disposition: 12/07/18 18:35 Discharged to Home. Impression: Radiculopathy, cervical region, Muscle spasm. - Condition is Stable. - Discharge Instructions: Cervical Radiculopathy. - Prescriptions for Tylenol- Codeine #3 300-30 mg Oral Tablet - take 1 tablet by ORAL route every 6 hours As needed; 15 tablet. Cyclobenzaprine 10 mg Oral Tablet - take 1 tablet by ORAL route every 8 hours As needed; 20 tablet. Medrol (Asif) 4 mg Oral Tablets, Dose Pack - take 1 tablet by ORAL route as directed - follow package instructions; 1 packet. - Medication Reconciliation Form, Thank You Letter, Antibiotic Education, Prescription Opioid Use form. - Follow up: Private Physician; When: As needed; Reason: Recheck today's complaints, Re-evaluation by your physician. - Problem is new. - Symptoms have improved. Signatures: Dispatcher [employer] EDLoki Roberts MD MD rn Calderon, Audri RN RN aa5 Jessica Nunn RN RN ss Corrections: (The following items were deleted from the chart) 18:09 18:06 Constitutional: Negative for fever, chills, and weight loss, Cardiovascular: rn Negative for palpitations, and edema, Respiratory: Negative for shortness of breath, cough, wheezing, and pleuritic chest pain, Abdomen/GI: Negative for abdominal pain, vomiting, diarrhea, and constipation, MS/Extremity: Negative for injury and deformity, Skin: Negative for injury, rash, and discoloration, Neuro: + tingling of left arm rn 19:19 18:35 12/07/2018 18:35 Discharged to Home. Impression: Radiculopathy, cervical region; aa5 Muscle spasm. Condition is Stable. Forms are Medication Reconciliation Form, Thank You Letter, Antibiotic Education, Prescription Opioid Use. Follow up: Private Physician; When: As needed; Reason: Recheck today's complaints, Re-evaluation by your physician. Problem is new. Symptoms have improved. rn
--- NOTE | 2018-12-07 19:49 | RAD REPORT ---
EXAM DESCRIPTION: RAD - Chest Single View - 12/07/2018 6:40 pm CLINICAL HISTORY: CHEST PAIN Chest pain. COMPARISON: Chest Single View dated 11/16/2016; CHEST SINGLE VIEW dated 07/30/2015 FINDINGS: Portable technique limits examination quality. Mild interstitial pulmonary edema. The heart is normal in size. No displaced fractures.
--- NOTE | 2018-12-08 11:46 | EKG ---
Test Date: 2018-12-07 Test Time: 17:02:54 Chief Executive Or Managing Director: CATRINA MEASUREMENT RESULTS: Intervals: Rate: 77 MA: 154 QRSD: 86 QT: 352 QTc: 398 [place]: P: 75 MA: 154 QRS: 78 T: 60 INTERPRETIVE STATEMENTS: Normal sinus rhythm Normal ECG Compared to ECG 11/16/2016 10:10:39 Sinus bradycardia no longer present Electronically Signed On 12-08-18 10:06:12 CDT by Koby Smith
== END 2018-12-07 19:19 | disposition home or self-care (01) ==
LOC: ER 16:49
DX: M54.12 Radiculopathy, cervical region (principal); M62.838 Other muscle spasm; I10 Essential (primary) hypertension; Z88.0 Allergy status to penicillin; Z88.8 Allergy status to other drugs, medicaments and biological substances
CPT/HCPCS: 36415; 71045; 80048; 83880; 84484; 85025; 93005; 99285

== ENCOUNTER 2019-03-13 11:47 | Emergency (ER) | payer SELFPAY ==
--- OUTSIDE RECORDS SUMMARY | 2019-03-13 11:49 | XMS REPORT | Clinical Summary ---
:1965 Author Organization [facility] Address [address] [place] [address] Care Team Providers Name Role Phone Ondina, [...] Health Maintenance Due Date Last Done Comments BREAST CANCER SCREENING 2014 COLONOSCOPY SCREENING 2014 SHINGLES VACCINES (#1) 2014 INFLUENZA VACCINE 04/01/2019 Results Not on fileafter 03/12/2018 Advance Directives Patient has advance care planning documents, and code status on file. For more information, please contact:Joey Curtis[address] [place] [address] Code Status Date Activated Date Inactivated Comments Full Code 02/16/2017 7:00 PM 02/19/2017 5:59 PM Code Status decision reached by: Patient
--- OUTSIDE RECORDS SUMMARY | 2019-03-13 11:50 | XMS REPORT | Continuity of Care Document ---
:1965 Author Organization [facility] Information [facility] Care Team Providers Name Role [facility] Unavailable Unavailable Problems Problem Status Onset Classification Date Comments Source Date Reported RECCURRENT Active [facility] PITUTARY ADENOMA [address] [place] [address] Center POSSIBLE CSF LEAK Active [address] dm Active Problem 04/15/2016 [facility] HTN (Confirmed) Active Problem 04/15/2016 [facility] Sleep apnea Active Problem 04/15/2016 [facility] CEREBROSPINAL Active [facility] FLUID LEAK [facility] Medications Medication Details Route Status Patient Ordering Order Source Instructions Provider Date meclizine 25 mg 25 mg=1 tab, Active [facility] oral tablet PO, TID, PRN 016 Medical for dizziness, Center X 20 day, # 60 tab, 0 Refill(s) acetaZOLAMIDE 250 mg=1 tab, Active [place] 250 mg oral PO, BID, # 120 016 [facility] tablet tab, 0 Center Refill(s) Docusate Sodium 100 mg=1 cap, Active [facility] 100 MG Oral PO, PRN, PRN 016 Medical Capsule as needed for Center constipation, # 50 cap, 0 Refill(s) Ondansetron 4 4 mg, PO, Q8H, Active [facility] MG Oral Tablet PRN Nausea, X 016 Medical [Zofran] 15 day, # 45 Center tab, 0 Refill(s) Acetaminophen 2 tab, PO, Active [place] 300 MG / Q4H, PRN Pain 016 [facility] Codeine Score 4-6, X 7 Center Phosphate 30 MG day, # 50 tab, Oral Tablet 0 Refill(s) [Tylenol with Codeine #3] heparin sodium, 5,000 unit, 1 No Longer [facility] porcine 2500 mL, Route: Active 016 Medical UNT/ML SUB-Q, Drug Center Injectable form: INJ, Solution Q8H, Dosing Weight 118.182, kg, Start date: 04/11/16 16:00:00 CDT, Duration: 30 day, Stop date: 05/11/16 8:00:00 CDTNotes: porcine heparin Morphine 1 mg, 0.5 mL, No Longer [facility] Route: IVP, Active 016 [facility] Drug form: Center INJ, Q2H, Dosing Weight 118.182, kg, PRN Pain Score 7-10, Start date: 04/10/16 17:22:00 CDT, Duration: 30 day, Stop date: 05/10/16 17:21:00 CDTNotes: (Same as:MORPhine Sulfate) Acetaminophen 2 tab, Route: No Longer [facility] 325 MG / PO, Drug Form: Active [facility] Hydrocodone TAB, Dosing Center Bitartrate 10 Weight MG Oral Tablet 118.182, kg, Q4H, PRN Pain Score 4-6, Start date: 04/10/16 17:22:00 CDT, Duration: 30 day, Stop date: 05/10/16 17:21:00 CDTNotes: Do not exceed 4gm/day of acetaminophen. (Same as: [place] 325/10) Streptococcus 0.5 mL, Route: Inactive [facility] pneumoniae IM, Drug Form: [facility] serotype 1 INJ, Daily, Center capsular Start date: antigen 04/10/16 diphtheria 9:00:00 CDT, [id number] protein Duration: 1 conjugate doses or vaccine / times, Stop Streptococcus date: 04/10/16 pneumoniae 9:00:00 serotype 14 CDTNotes: capsular Lightly roll antigen vial (DO NOT diphtheria SHAKE) before [id number] protein administration conjugate . (Same as: vaccine / Prevnar 13) Streptococcus pneumoniae serotype 18C capsular antigen d Zofran 4 mg, Route: No Longer [facility] IV, Q8H, Active 016 [facility] Dosing Weight Center 118.182, kg, Start date: 04/10/16 0:00:00 CDT, Duration: 30 day, Stop date: 05/09/16 16:00:00 CDT Saline Flush 10 ml, Route: No Longer [facility] 0.9% IVP, Drug Active 016 Medical Form: [...] Docusate 100 mg, 1 cap, No Longer [facility] Route: PO, Active [facility] Drug form: [place] CAP, Q12H, Dosing Weight 118.182, kg, Start [...] Stop date: 05/09/16 16:00:00 CDTNotes: (Same as: [place] 325/10) chlorhexidine 15 mL, Route: Inactive [facility] gluconate 1.2 Swab Mouth, 016 [facility] MG/ML Mouthwash Q4H, Drug Center form: LIQ, Start date: 04/09/16 20:00:00 CDT, Duration: 30 day, Stop date: 05/09/16 16:00:00 CDTNotes: (Same As: Peridex) Zofran 4 mg, 2 mL, No Longer [facility] Route: IV, Active [facility] Drug form: Center INJ, Q8H, Dosing Weight 118.182, kg, PRN as needed for nausea/vomitin g, Start date: 04/09/16 18:37:00 CDT, Duration: 30 day, Stop date: 05/09/16 18:36:00 CDTNotes: (Same as: Zofran) MEDICATION WASTE Product Size: 4 mg Product Wasted: ___ mg sodium chloride 1,000 mL, No Longer [facility] 0.9% 1000 ml Rate: [address] [place] [address] INJ 1,000 mL ml/hr, Infuse Center over: 13.3 hr, Route: IV, Dosing Weight 118.182 kg, Total Volume: 1,000, Start date: 04/09/16 18:37:00 CDT, Duration: 30 day, Stop date: 05/09/16 18:36:00 CDT Dextrose 50% 6.25 gm, 12.5 No Longer [facility] Syringe mL, Route: Active [address] [place] [address] IVP, Drug Center Form: INJ, Dosing Weight 118.182, kg, PRN, PRN Abnormal Lab Result, Start date: 04/09/16 18:33:00 CDT, Duration: 30 day, Stop date: 05/09/16 18:32:00 CDT Regular 3 unit, 0.03 No Longer [facility] Insulin, Human mL, Route: Active [address] [place] [address] 100 UNT/ML SUB-Q, Drug Center Injectable form: [...] from Date Zofran 2 mg, Route: Inactive [facility] PO, Drug form: 016 Medical TAB, PRN, Center Dosing Weight 118.182, kg, PRN Nausea, Priority: STAT, Start date: 04/09/16 18:12:00 CDT, Stop date: 05/09/16 18:11:00 CDT Insulin regular 99 mL, Rate: Inactive [facility] 100 unit + Start at 0.05 016 [facility] sodium chloride units/kg/hour- Center 0.9% INJ 99 mL , Dosing Weight 118.182, kg, Route: IVPB, Total Volume: 100, Start Date: 04/09/16 18:10:00 CDT, Duration: 30 day, Stop date: 05/09/16 18:09:00 CDT, Replace Every: 24 hrNotes: (Same as: Humulin R and NovoLIN R) Dextrose 50% 25 gm, 50 mL, Inactive [facility] Syringe Route: IVP, [facility] Drug Form: Center INJ, Dosing Weight 118.182, kg, PRN, PRN Abnormal Lab Result, Start date: 04/09/16 18:10:00 CDT, Duration: 30 day, Stop date: 05/09/16 18:09:00 CDT Saline Flush 10 ml, Route: No Longer [facility] 0.9% IVP, Drug Active 016 [facility] Form: INJ, Center Dosing Weight 118.182, kg, PRN, PRN Line Flush, Start date: 04/09/16 18:10:00 CDT, Duration: 30 day, Stop date: 05/09/16 18:09:00 CDTNotes: (Same as: BD Posiflush) Acetaminophen 1 tab, Route: No Longer [facility] 325 MG / PO, Drug Form: Active 016 [facility] Hydrocodone TAB, Dosing Center Bitartrate 5 MG Weight Oral Tablet 118.182, kg, Q4H, PRN Pain Score 1-3, Start date: 04/09/16 18:10:00 CDT, Duration: 30 day, Stop date: 05/09/16 18:09:00 CDTNotes: (Same as: [place] 325/5) Labetalol 20 mg, 0.5 mL, No Longer [facility] Route: PO, Active 016 [facility] Drug form: Center SUSP, PRN, Dosing Weight 118.182, kg, PRN Hypertension, Priority: STAT, Start date: 04/09/16 18:09:00 CDT, Stop date: 05/09/16 18:08:00 CDTNotes: Labetalol 300mg tab #16. Refrigerate. Shake well before using. Give with food. (Same as:Normodyne, Trandate) Compounded Product - formulation not commercially available Phenergan 25 mg, Route: Inactive [facility] IVPB, ONCE, 016 Medical Dosing Weight Center 118.182, kg, Priority: STAT, Start date: 04/09/16 17:53:00 CDT, Stop date: 04/09/16 17:53:00 CDT Dilaudid 2 mg, Route: Inactive [facility] IV, ONCE, 016 Medical Dosing Weight Center 118.182, kg, Start date: 04/09/16 17:53:00 CDT, Stop date: 04/09/16 17:53:00 CDT Dilaudid 1 mg, Route: Inactive [facility] IV, ONCE, 016 Medical Dosing Weight Center 118.182, kg, Start date: 04/09/16 15:55:00 CDT, Stop date: 04/09/16 15:55:00 CDT Dilaudid 0.5 mg, 0.25 Inactive [facility] mL, Route: 016 Medical IVP, Drug Center form: INJ, ONCE, Dosing Weight 118.182, kg, Priority: STAT, Start date: 04/09/16 14:11:00 CDT, Stop date: 04/09/16 14:11:00 CDTNotes: Same as: Dilaudid Ibuprofen 600 mg, 1 tab, Inactive [facility] Route: PO, 016 [facility] Drug form: Center TAB, ONCE, Dosing Weight 118.182, kg, Priority: STAT, Start date: 04/09/16 14:11:00 CDT, Stop date: 04/09/16 14:11:00 CDTNotes: (Same as: Motrin) "Do Not Crush" Take with food. Sodium Chloride 1,000 mL, 500 Inactive [facility] 0.154 MEQ/ML ml/hr, Infuse [facility] Medical Injectable Over: 1 hr, Center Solution Route: IV, ONCE, Priority: STAT, Dosing Weight 118.182 kg, Start date: 04/09/16 11:18:00 CDT, Duration: 1 doses or times, Stop date: 04/09/16 11:18:00 CDT Allergies, Adverse Reactions, Alerts Substance Category Reaction Severity Reaction Status Date Comments Source type Reported penicillins Assertion Drug Active [facility] Plaquenil Assertion Drug Active [facility] Immunizations Immunization Date Given Site Status Last Comments Source Updated pneumococcal 04/10/2016 Right completed [place] [facility] 13-valent vaccine Deltoid [facility] Results Order Name Results Value Reference Date Interpretation Comments Source Range ENDOCRINOLOGY Prolactin 14.1 04/12 [facility] Lvl /2015 [facility] ENDOCRINOLOGY LH 29.18 04/12 [facility] ENDOCRINOLOGY FSH 44.0 04/12 [facility] BACTERIAL - MRSA by PCR Negative 04/10 [facility] SEROLOGY (04/09/16 7:33 PM) /2015 [facility] BLOOD BANK Antibody Negative 04/09 [facility] RESULTS Scrn (04/09/16 9:54 AM) /2015 [facility] BLOOD BANK ABO/Rh O NEG 04/09 [facility] RESULTS [facility] CARDIAC Troponin-I <0.02 0.00 - 04/09 [facility] ENZYMES 0.40 [facility] CHEM PANEL eGFR 27 04/09 Result Comment: The [facility] eGFR is Center calculated using the CKD-EPI formula. In most young, healthy individuals the eGFR will be >90 mL/min/1.73m2 . The eGFR declines with age. An eGFR of 60-89 may be normal in some populations, particularly the elderly, for whom the CKD-EPI formula has not been extensively validated. Use of the eGFR is not recommended in the following populations:< br/>
Nery viduals with unstable creatinine concentration s, including patients and those with serious co-morbid conditions.<b r/>
Patie nts with extremes in muscle mass or diet.

The data above are obtained from the National Kidney Disease Education Program (NKDEP) which additionally recommends that when the eGFR is used in patients with extremes of body mass index for purposes of drug dosing, the eGFR should be multiplied by the estimated BMI. CHEM PANEL Glucose Lvl 84 70 - 99 04/09 [facility] CHEM PANEL Chloride Lvl 103 95 - 109 04/09 [facility] CHEM PANEL Potassium 4.5 3.5 - 5.1 04/09 [place] Lvl [facility] CHEM PANEL BUN 56 7 - 22 04/09 [facility] CHEM PANEL Sodium Lvl 140 135 - 145 08/ [facility] CHEM PANEL Creatinine 2.09 0.50 - 08 [place] Lvl 1.40 /2015 [facility] CHEM PANEL Calcium Lvl 8.8 8.5 - 10.5 04/09 [facility] CHEM PANEL CO2 30 24 - 32 08/ [facility] CHEM PANEL AGAP 11.5 10.0 - 08/ [place] 20.0 [facility] HEMATOLOGY Monocytes # 0.3 0.0 - 0.8 08/ [facility] HEMATOLOGY Lymphocytes 1.4 1.0 - 5.5 08 [facility] HEMATOLOGY Segs-Bands # 4.0 1.5 - 8.1 04/09 [facility] HEMATOLOGY Basophils 0.6 0.0 - 1.0 / [facility] HEMATOLOGY Segs 67.3 45.0 - 08 [place] 75.0 /2015 [facility] HEMATOLOGY Eosinophils 3.5 0.0 - 4.0 08/ [facility] HEMATOLOGY Monocytes 4.8 2.0 - 12.0 / [facility] HEMATOLOGY Lymphocytes 23.8 20.0 - 08/ [place] 40.0 [facility] HEMATOLOGY Eosinophils 0.2 0.0 - 0.5 / [facility] HEMATOLOGY Platelet 266 133 - 450 04/09 [facility] HEMATOLOGY MPV 8.0 7.4 - 10.4 08 [facility] HEMATOLOGY WBC 5.9 3.7 - 10.4 08 [facility] HEMATOLOGY RBC 4.03 4.20 - 08 [place] 5.40 [facility] HEMATOLOGY RDW 18.9 11.5 - 08/09 [place] 14.5 /2016 [facility] [place] HEMATOLOGY MCHC 31.6 32.0 - 08/ [place] 36.0 /2015 [facility] HEMATOLOGY MCH 25.7 27.0 - 08/09 [place] 31.0 /2015 [facility] HEMATOLOGY MCV 81.4 80.0 - 08/09 [place] 98.0 /2016 [facility] HEMATOLOGY Hct 32.8 36.0 - 08/09 [place] 48.0 /2016 [facility] HEMATOLOGY Hgb 10.4 12.0 - 08 [facility] 16.0 [facility] Center Pathology Reports No Data Provided for This Section Diagnostic Reports Report Value Date Source Sinus wo contrast CT EXAM: CT SINUS WITHOUT CONTRAST 04/10/2016 [facility] DATE: 04/10/2016 12:37 AM CDT Center INDICATION: 50 years old Female patient with [...] concerning for malignancy. Tissue sampling is recommended. Consultation Notes No Data Provided for This Section Discharge Summaries No Data Provided for This Section History and Physicals No Data Provided for This Section Vital Signs Vital Sign Value Date Comments Source Systolic (mm Hg) 114 04/12/2016 [facility] Diastolic (mm Hg) 66 04/12/2016 [facility] Respitory Rate 18 04/12/2016 [facility] Heart Rate 57 04/12/2016 [facility] Temperature Oral (F) 97.7 F 04/12/2016 [facility] Systolic (mm Hg) 128 04/12/2016 [facility] Diastolic (mm Hg) 71 04/12/2016 [facility] Heart Rate 60 04/12/2016 [facility] Respitory Rate 16 04/12/2016 [facility] Temperature Oral (F) 97.7 F 04/12/2016 [facility] Temperature Oral (F) 98.1 F 04/12/2016 [facility] Heart Rate 64 04/12/2016 [facility] Respitory Rate 16 04/12/2016 [facility] Systolic (mm Hg) 103 04/12/2016 [facility] Diastolic (mm Hg) 65 04/12/2016 [facility] Weight 118.182 04/09/2016 [facility] BMI Calculated 47.65 04/09/2016 [facility] Height 157.48 cm 04/09/2016 [facility] Encounters Location Location Encounter Encounter Reason Attending ADM DC Status Source Details Type Number For Provider Date Date Visit [facility] [id number] [facility] Procedures Procedure Code Date Perfomer Comments Source Appendectomy [id number] [facility] Excision of lesion [id number] [facility] pituitary gland [facility] Assessment and Plan Assessment and Plan Date Source Extracted from:Title: Clinical Document 04/12/2016 [facility] Author: Mumtaz Burt MD Date: 04/12/16 ENT [...] Head and Neck Surgery Adult ENT Pager: [phone] Pediatric ENT Pager: [phone] Addendum by Mumtaz Burt MD on 04/12/2016 07:38 Discussed with staff. No plans for surgery at this time. D/C home with diamoxx 250mg BID for 8 weeks. Needs follow up with PCP to monitor electrolytes Send with tube to collect beta 2. If leaking, collect in tube, place on ice, then send to lab for analysis Follow up with Dr. Santana in 2-3 weeks. Extracted from:Title: Ophthalmology Consult Note Author: aSndy Martinez MD Date: 04/09/16 Ophthalmology Consultation Note Patient Name: Luzma Dominguez MR#: [id number] Room: ED 9 Requesting Team: ED Date of Consult: 04/09/16 Consulting Attending: Amparo Lewis MD Consulting Resident: Sandy Martinez MD, MPH Reason for Consult: blurry vision History of Present Illness: Ms. Dominguez is a 50 year-old woman with a history of DM, HTN and pituitary adenoma s/p resection 1 year ago via transnasal, transphenoidal approach in [place] who was transferred from [facility] for concern for recurrence of her pituitary mass. Ophthalmology was consulted due to a complaint of blurry vision. She states that when she had the pituitary adenoma 1 year ago, she never experienced any vision lo ss. Has never seen an grease press helper or had a dilated eye exam. States [...] call for a follow-up appointment at the [facility] with Dr. Lewis 1-2 weeks after discharge. (Located: [address] [place] [address], 18th floor; Appt #: [phone]) Please call if any changes develop. Sandy Martinez MD, MPH PGY2, Ophthalmology Pager #[phone] Attending Note: I have personally seen and [...] questions or concerns. Amparo Lewis MD MSO# [id number] Attending Physician, Ophthalmology Plan of Care No Data Provided for This Section Social History Social History Date Source Social History TypeResponse 04/10/2016 [facility] Alcohol Never, Previous treatment: None. Smoking Status Never smoker; Exposure to Tobacco Smoke None; Cigarette Smoking Last 365 Days No; Reg Smoking Cessation Counseling No Family History No Data Provided for This Section Advance Directives No Data Provided for This Section Functional Status No Data Provided for This Section
--- OUTSIDE RECORDS SUMMARY | 2019-03-13 11:51 | XMS REPORT ---
:1965 [facility] Address [address] [place] [address] Care Team Providers Name Role Phone Unavailable Unavailable Unavailable Payers Payer Name Policy Type Policy Number Effective Date Expiration Date Problems This patient has no known problems. Allergies, Adverse Reactions, Alerts Allergy Name Allergy Status Severity Reaction(s) Onset Inactive Treating Comments Type Date Date Clinician Penicillins DA Active CA 01-30 00:00: 00 hydroxychloroqu DA Active MO 2017-0 ine 01-30 00:00: 00 pregabalin DA Active SV 01-30 00:00: 00 Medications This patient has no known medications. Results Test Description Test Time Test Comments Text Results Atomic Results Result Comments GLUBED 2019-02-23 11:54:00 Test Item Value Reference Range Comments GLUBED (test code=GLUBED) 94 MG/DL 70-110 Performed by certified pinked edge sewing machine operator at [facility] [id number] 07:59:00 Test Item Value Reference Range Comments GLUBED (test code=GLUBED) 105 MG/DL 70-110 Performed by certified pinked edge sewing machine operator at [facility] [id number] 20:38:00 Test Item Value Reference Range Comments GLUBED (test code=GLUBED) 114 MG/DL 70-110 Performed by certified pinked edge sewing machine operator at [facility] [id number] 16:39:00 Test Item Value Reference Range Comments GLUBED (test code=GLUBED) 120 MG/DL 70-110 Performed by certified pinked edge sewing machine operator at [facility] [id number] 12:38:00 Test Item Value Reference Range Comments GLUBED (test code=GLUBED) 93 MG/DL 70-110 Performed by certified pinked edge sewing machine operator at [facility] - [facility] ANGIO [id number] 09:00:00 Name: RENETTA DOMINGUEZ [facility] : 1965 Age/S: 53 / F [address] [place] [address] Blvd Unit #: [id number] Loc: [facility] [id number] Phys: David Stanford MD Acct: [id number] Dis Date: Status: ADM IN PHONE #: [phone] Exam Date: 02/22/2019825 FAX #: [phone] Reason: CP, HTN, DM EXAMS: CPTCODE: [id number] CT ANGIO CHEST [id number] PROCEDURE: CTA CHEST INDICATION: Chest pain. COMPARISON: CTA chest 01/30/2018 TECHNIQUE: CTA of the chest was performed with 100 ml Isovue 300 intravenous contrast. Multiplanar and 3-D MIP angiographic reconstructions are reviewed. CT imaging performed at this location utilizes radiation dose optimization techniques which include one or more of the following: -Automated exposure control -Adjustment of the mA and/or kV according to patient size -Use of iterative reconstruction technique CT Radiation Dose DLP 927.2 mGy-cm FINDINGS: AORTA: No contour irregularity or dissection flap is visualized. No flow limiting stenosis. Scattered atherosclerotic calcifications of the thoracic aorta. PULMONARY ARTERIES: No filling defect is present in the pulmonary arteriesto the segmental level. MEDIASTINUM: No mediastinal or hilar mass or lymphadenopathy. HEART: Normal cardiac chamber size. No pericardial effusion. LUNGS: No parenchymal mass. No focal consolidation. Normal parenchyma. Bilateral lower lobe atelectasis. 3.4 mm nodule in the right lower lobe, series 4 image 169. UPPER ABDOMEN: Survey of viscera may be limited by early phase of contrast enhancement. No acute abnormality demonstrated. MUSCULOSKELETAL: No acute osseous abnormality. Degenerative changes ofthe thoracic spine. IMPRESSION: No evidence of pulmonary arterialthromboembolism to the segmental level. Right lower lobe pulmonary nodule,stable since previous examination. PAGE 1 Signed Report (CONTINUED) Name : RENETTA DOMINGUEZ [facility] : Age/S: 53 / F [address] [place] [address] Blvd Unit #: [id number] Loc: [place] [address] Phys: David Stanford MD Acct: [id number] Dis Date: Status: ADM IN PHONE #: [phone] Exam Date: 02/22/2019825 FAX #: [phone] Reason: CP, HTN, DM EXAMS: CPT CODE: [id number] CT ANGIO CHEST 27885 <Continued> SL: [id number] at 0900 Reported and signed by: Hollis Greenfield M.D. CC: Frantz Nj MD; David Stanford MD Technologist:Fany Valdivia RT(R)(CT) CTDI: DLP: Trnscb Date/Time: 02/22/2019 (0900) [id number] Orig Print D/T: S: (0903) PAGE 2 Signed [id number] 08:48:00 Test Item Value Reference Range Comments GLUBED (test code=GLUBED) 96 MG/DL 70-110 Performed by certified pinked edge sewing machine operator at [facility] BASIC METABOLIC [id number] 08:29:00 Test Item Value Reference Range Comments SODIUM (test code=NA) 142 mEq/L 134-147 POTASSIUM (test code=K) 3.8 mEq/L 3.4-5.0 CHLORIDE (test code=CL) 109 mEq/L 100-108 CARBON DIOXIDE (test code=CO2) 27 mEq/L 21-33 ANION GAP (test code=GAP) 10 0-20 GLUCOSE (test code=GLU) 86 mg/dL 70-110 BLOOD UREA NITROGEN (test 26 mg/dL 7-18 code=BUN) GLOMERULAR FILTRATION RATE 51.8 90-95 Units of measure=ml/min/1.73 (test code=GFR) m2 CREATININE (test code=CREAT) 1.1 mg/dL 0.6-1.3 CALCIUM (test code=CA) 8.5 mg/dL 8.0-10.5 LIPID PROFILE (CORONARY RISK)2019-02-22 08:29:00 Test Item Value Reference Range Comments TRIGLYCERIDES (test 128 mg/dL 40-150 code=TRIG) CHOLESTEROL (test code=CHOL) 143 mg/dL <200 CHOLESTEROL/HDL RATIO (test 4.21 RATIO 3.27-4.44 RISK ASSOCIATED WITH CHOL/ HDL code=CHOLHDL) RATIOS: RISK MALE FEMALE1/2 AVERAGE 3.43 3.27AVERAGE 4.97 4.442X AVERAGE 9.55 7.053X AVERAGE 23.39 11.04 NOTE THAT THE REFERENCE VALUE IS RELATEDTO RISK LEVELS RECOMMENDED BY THE NATL.HEART, LUNG, AND BLOOD INST. HDL CHOLESTEROL (test 34.0 mg/dL 39-96 code=HDL) LIPOPROTEIN LDL (test 93 mg/dL 0-100 <100 [id number] NEAR code=LDL) OPTIMAL/ABOVE [id number] HIGH>LB=691 VERY HIGH*Guidelines provided by the National Cholesterol EducationProgram Adult Treatment Panel III CBC W/AUTO [id number] 08:00:00 Test Item Value Reference Range Comments WHITE BLOOD CELL (test code=WBC) 7.94 x10 3/uL 4.5-11.0 RED BLOOD CELL (test code=RBC) 3.58 x10 6/uL 3.54-5.02 HEMOGLOBIN (test code=HGB) 10.0 g/dL 11.0-15.0 HEMATOCRIT (test code=HCT) 32.3 % 33.0-45.0 MEAN CELL VOLUME (test code=MCV) 90.2 fL 81.0-99.0 MEAN CELL HGB (test code=MCH) 27.9 pg 27.0-33.0 MEAN CELL HGB CONCETRATION (test code=MCHC) 31.0 g/dL 33.0-37.0 RED CELL DISTRIBUTION WIDTH CV (test code=RDW) 15.6 % 11.5-14.5 RED CELL DISTRIBUTION WIDTH SD (test 51.7 fL 37.0-54.0 code=RDW-SD) PLATELET COUNT (test code=PLT) 253 x10 3/uL 150-400 MEAN PLATELET VOLUME (test code=MPV) 9.9 fL 7.0-9.0 NEUTROPHIL % (test code=NT%) 63.4 % 56.0-77.0 IMMATURE GRANULOCYTE % (test code=IG%) 0.8 % 0.0-2.0 LYMPHOCYTE % (test code=LY%) 28.1 % 14.0-32.0 MONOCYTE % (test code=MO%) 4.4 % 4.8-9.0 EOSINOPHIL % (test code=EO%) 2.9 % 0.3-3.7 BASOPHIL % (test code=BA%) 0.4 % 0.0-2.0 NUCLEATED RBC % (test code=NRBC%) 0.0 % 0-0 NEUTROPHIL # (test code=NT#) 5.04 x10 3/uL 2.0-7.6 IMMATURE GRANULOCYTE # (test code=IG#) 0.06 x10 3/uL 0.00-0.03 LYMPHOCYTE # (test code=LY#) 2.23 x10 3/uL 1.0-3.8 MONOCYTE # (test code=MO#) 0.35 x10 3/uL 0.1-0.8 EOSINOPHIL # (test code=EO#) 0.23 x10 3/uL 0.0-0.2 BASOPHIL # (test code=BA#) 0.03 x10 3/uL 0.0-0.2 NUCLEATED RBC # (test code=NRBC#) 0.00 x10 3/uL 0.0-0.1 MANUAL DIFF REQUIRED (test code=MDIFF) NO [id number] 03:24:00 Test Item Value Reference Range Comments TROPONIN-I (test < 0.015 ng/mL 0.000-0.045 Negative: <=0.045 code=TROPI) Positive: >=0.046 Correlation with serial results, other cardiac markers andclinical findings is necessary to determine the clinicalsignificance of this result. Results using different methodologies should not be comparedto one another as quantitative results may vary by method. COMMENTS: 3 troponins total (including troponin done in ED)T4 [id number] 01: 04:00 Test Item Value Reference Range Comments T4 FREE (test code=T4F) 0.9 ng/dL 0.77-1.61 THYROID STIMULATING [id number] 01:04:00 Test Item Value Reference Range Comments THYROID STIMULATING HORMONE (test 5.63 0.42-5.47 Results in [employer] code=TSH) Units/mL HGBA1C%2019-02-22 00:56:00 Test Item Value Reference Range Comments HGBA1C% (test code=HGBA1C%) 5.6 %A1C 4.8-6.0 [id number] 00:53:00 Test Item Value Reference Range Comments TROPONIN-I (test < 0.015 ng/mL 0.000-0.045 Negative: <=0.045 code=TROPI) Positive: >=0.046 Correlation with serial results, other cardiac markers andclinical findings is necessary to determine the clinicalsignificance of this result. Results using different methodologies should not be comparedto one another as quantitative results may vary by method. COMMENTS: 3 troponins total (including troponin done in ED)B-TYPE NATRIURETIC [id number] 20:34:00 Test Item Value Reference Range Comments B-TYPE NATRIURETIC PEPTIDE (test code=BNP) 37.5 PG/ML 0-100 HEPATIC FUNCTION [id number] 19:56:00 Test Item Value Reference Range Comments TOTAL PROTEIN (test code=PROT) 8.4 g/dL 6.4-8.2 ALBUMIN (test code=ALB) 3.50 g/dL 3.4-5.0 BILIRUBIN TOTAL (test code=BILT) 0.30 mg/dL 0.0-1.0 BILIRUBIN DIRECT (test code=BILD) < 0.10 MG/DL 0.0-0.30 BILIRUBIN INDIRECT (test code=BILIND) 0.20 MG/DL SGOT/AST (test code=AST) 14 IUnit/L 15-37 SGPT/ALT (test code=ALT) 17 IUnit/L 15-65 ALKALINE PHOSPHATASE TOTAL (test code=ALKP) 128 IUnit/L 20-125 [id number] 19:56:00 Test Item Value Reference Range Comments TROPONIN-I (test < 0.015 ng/mL 0.000-0.045 Negative: <=0.045 code=TROPI) Positive: >=0.046 Correlation with serial results, other cardiac markers andclinical findings is necessary to determine the clinicalsignificance of this result. Results using different methodologies should not be comparedto one another as quantitative results may vary by method. PROTHROMBIN [id number] 19:48:00 Test Item Value Reference Range Comments PROTHROMBIN TIME PATIENT 12.5 SECONDS 9.3-12.9 (test code=PTP) INTERNATIONAL NORMAL RATIO 1.1 0.8-1.2 TARGET INR BY (test code=INR) INDICATION Indication INR1. Prophylaxis of venous thrombosis 2.0 - 3.0 (orthopedic surgery), Prophylaxis of venous thrombosis (other than high-risk surgery), Treatment of Deep Vein Thrombosis/Pulmonary Embolism, Prevention of systemic embolism - Tissue heart valves, Acute Myocardial Infarction (to prevent systemic embolism), Valvular heart disease, Atrial Fibrillation, Bileaflet mechanical valve in aortic position.2. Mechanical prosthetic valves (high risk), 2.5 - 3.5 Presence of Lupus Anticoagulant or Antiphospholipid Antibodies, Prevention of systemic embolism - Acute Myocardial Infarction (to prevent recurrent infarct). [id number] 19:48:00 Test Item Value Reference Range Comments D-DIMER (test 482 ng/mlFEU <=500 THROMBOSIS AND/OR PULMONARY code=DDIMER) EMBOLISM AND THE CLINICAL CUT- OFF VALUE FOR EXCLUSION (500 ng/mL FEU) OF THESE CONDITIONSIS VALIDATED BY THE PROCESS OWNER OF THE METHOD. A NEGATIVE D-DIMER RESULT WHEN COMBINED WITH A CLINICALASSESSMENT OF LOW PRETEST PROBABILITY HAS BEEN SHOWN TO HAVEA HIGH NEGATIVE PREDICTIVE VALUE OF DVT OR PE. D-DIMER VALUES >500 ng/mL FEU ARE NOT DIAGNOSTIC FOR DVT, PEor DIC WITHOUT OTHER CONFIRMATORY TESTS AND APPROPRIATECLINICAL EUALUATIONS. CBC W/AUTO [id number] 19:44:00 Test Item Value Reference Range Comments WHITE BLOOD CELL (test code=WBC) 9.88 x10 3/uL 4.5-11.0 RED BLOOD CELL (test code=RBC) 4.17 x10 6/uL 3.54-5.02 HEMOGLOBIN (test code=HGB) 11.6 g/dL 11.0-15.0 HEMATOCRIT (test code=HCT) 37.6 % 33.0-45.0 MEAN CELL VOLUME (test code=MCV) 90.2 fL 81.0-99.0 MEAN CELL HGB (test code=MCH) 27.8 pg 27.0-33.0 MEAN CELL HGB CONCETRATION (test code=MCHC) 30.9 g/dL 33.0-37.0 RED CELL DISTRIBUTION WIDTH CV (test code=RDW) 15.6 % 11.5-14.5 RED CELL DISTRIBUTION WIDTH SD (test 51.3 fL 37.0-54.0 code=RDW-SD) PLATELET COUNT (test code=PLT) 270 x10 3/uL 150-400 MEAN PLATELET VOLUME (test code=MPV) 9.3 fL 7.0-9.0 NEUTROPHIL % (test code=NT%) 76.4 % 56.0-77.0 IMMATURE GRANULOCYTE % (test code=IG%) 0.6 % 0.0-2.0 LYMPHOCYTE % (test code=LY%) 17.4 % 14.0-32.0 MONOCYTE % (test code=MO%) 3.6 % 4.8-9.0 EOSINOPHIL % (test code=EO%) 1.8 % 0.3-3.7 BASOPHIL % (test code=BA%) 0.2 % 0.0-2.0 NUCLEATED RBC % (test code=NRBC%) 0.0 % 0-0 NEUTROPHIL # (test code=NT#) 7.54 x10 3/uL 2.0-7.6 IMMATURE GRANULOCYTE # (test code=IG#) 0.06 x10 3/uL 0.00-0.03 LYMPHOCYTE # (test code=LY#) 1.72 x10 3/uL 1.0-3.8 MONOCYTE # (test code=MO#) 0.36 x10 3/uL 0.1-0.8 EOSINOPHIL # (test code=EO#) 0.18 x10 3/uL 0.0-0.2 BASOPHIL # (test code=BA#) 0.02 x10 3/uL 0.0-0.2 NUCLEATED RBC # (test code=NRBC#) 0.00 x10 3/uL 0.0-0.1 MANUAL DIFF REQUIRED (test code=MDIFF) NO - XR CHEST 1 [id number] 19:42:00 FAX: Silvestre Rudd DO [place]: St: [facility] FAX: Frantz Rodriguez MD [phone] --- Name: RENETTA DOMINGUEZ [facility] [place] : 1965 Age/S: 53/F [address] [place] [address] Blvd Unit #: [id number] Loc: [place] [address] Phys: Silvestre Colón DO Acct: [id number] Dis Date: Status: REG ER PHONE #: [phone] Exam Date: 02/21/20191936 FAX #: [phone] Reason: Chest Pain EXAMS: CPT CODE: [id number] XR CHEST 1 V 57332 Single portable AP chest INDICATION: Chest pain radiating to the back. COMPARISON: 04/19/2018 radiograph FINDINGS: The cardiomediastinal silhouette is normal in size. Minimal linear atelectasis left lower lung. Lungs otherwise clear. No pleural effusions identified. No acute bony finding. IMPRESSION: No acute findings. SL: SG-H at 1942 * * Reported and signed by: Dawood Mcnally M.D. CC: Silvestre Colón DO; Frantz Nj MD Technologist: RT Paulino(R ) Trnscrd Date/Time/By: 02/21/2019 (1941) : By: [email or web address] Orig Print D/T: S: 02/21/2019 (1944) PAGE 1 Signed ReportCHEMISTRY 8 [id number] 19:31:00 Test Item Value Reference Range Comments ISTAT-SODIUM (test code=NAP) MMOL/L 134-147 ISTAT-POTASSIUM (test code=KP) MMOL/L 3.4-5.0 ISTAT-CHLORIDE (test code=CLP) MMOL/L 100-108 ISTAT CARBON DIOXIDE (test code=ISTAT-CO2) mmol/L 21-33 ISTAT CALCIUM IONIZED (test code=ISTAT-JENELLE) MG/DL 1.12-1.32 ISTAT-GLUCOSE (test code=GLUP) MG/DL 70-110 ISTAT-BUN (test code=BUNP) MG/DL 7-18 BEDSIDE CREATININE (test code=CREATBED) MG/DL 0.6-1.3 GLOMERULAR FILTRATION RATE POC (test code=GFRBED) 61 ML/MIN CHEMISTRY 8 [id number] 19:31:00 Test Item Value Reference Range Comments ISTAT-SODIUM (test code=NAP) 142 MMOL/L 134-147 ISTAT-POTASSIUM (test 4.1 MMOL/L 3.4-5.0 code=KP) ISTAT-CHLORIDE (test 107 MMOL/L 100-108 Performed by certified code=CLP) pinked edge sewing machine operator at [facility] ISTAT CARBON DIOXIDE (test 25.0 mmol/L 21-33 code=ISTAT-CO2) ISTAT CALCIUM IONIZED (test 1.17 MG/DL 1.12-1.32 code=ISTAT-JENELLE) ISTAT-GLUCOSE (test 133 MG/DL 70-110 code=GLUP) ISTAT-BUN (test code=BUNP) 27 MG/DL 7-18 BEDSIDE CREATININE (test 1.0 MG/DL 0.6-1.3 code=CREATBED) GLOMERULAR FILTRATION RATE 61 ML/MIN POC (test code=GFRBED)
[2019-03-13 12:54] LABS: Absolute Lymphocytes (CBC) 1.1 K/uL (0.7-4.9); Basophils % 0.4 % (0-1.3); Eosinophils % 2.8 % (0-4.4); Hematocrit 34.2 % (36.0-45.0); Lymphocytes % 15.6 % (15.3-44.8); MPV 7.3 fL (7.6-11.3); Monocytes % 3.3 % (3.3-12.3)
[2019-03-13 13:01] LABS: Protime INR 0.98
[2019-03-13 13:09] LABS: Barbiturates NEGATIVE (NEGATIVE); Benzodiazepines NEGATIVE (NEGATIVE); Cocaine NEGATIVE (NEGATIVE); METHAMPHETAM NEGATIVE (NEGATIVE); Methadone NEGATIVE (NEGATIVE); Opiates NEGATIVE (NEGATIVE); Phencyclidine NEGATIVE (NEGATIVE); THC Cannibis NEGATIVE (NEGATIVE)
[2019-03-13 13:16] LABS: ALT/SGPT 22 U/L (12-78); AST/SGOT 18 U/L (15-37); Albumin 3.3 g/dL (3.4-5.0); Alkaline Phosphatase 125 U/L (45-117); BUN Blood Urea Nitrogen 16 mg/dL (7-18); Bicarbonate 29 mmol/L (21-32); Bilirubin Direct 0.1 mg/dL (0-0.2); Bilirubin Total 0.3 mg/dL (0.2-1.0); Glucose Level 116 mg/dL (74-106); Potassium 4.3 mmol/L (3.5-5.1); Sodium Level 143 mmol/L (136-145)
[2019-03-13 13:17] LABS: Urine Blood NEGATIVE (NEG); Urine Glucose NEGATIVE (NEG); Urine Protein NEGATIVE (NEG); Urine Specific Gravity 1.025 (1.005-1.030)
[2019-03-13] MEDS ORDERED: IBUPROFEN 200 MG TAB PO ONE (16:01)
[2019-03-13] MEDS ORDERED: IBUPROFEN 400 MG TAB ONE (16:01)
--- NOTE | 2019-03-13 16:24 | EDPHYS ---
Physician Documentation [facility] Name: Luzma Lamar Age: 53 yrs Sex: Female : 1965 Arrival Date: 03/13/2019 Time: 11:48 Bed 14 Private MD: ED Physician Loki Judge HPI: 03/13 13:10 This 53 yrs old Female presents to ER via Ambulatory with complaints of pm1 Depression. 13:10 The patient presents to the emergency department with depression, over work, unable to pm1 find job. Onset: The symptoms/episode began/occurred 3 day(s) ago. Past psychiatric history: Prior diagnosis: depression, Psychiatric medications include: none, Has not taken in Zoloft and Celexa in 6 months, the patient has not had a prior suicide gesture, the patient does not have a previous inpatient psychiatric history, the patient's last psychiatric treatment was none. Associated signs and symptoms: Pertinent positives; depression, Pertinent negatives: abdominal pain, anxiety, chest pain, hallucinations, homicidal ideation, shortness of breath, substance abuse, suicide ideation. Severity of symptoms: in the emergency department the symptoms are worse Pain is currently a 0 / 10. The patient has not recently seen a physician. Patient is feeling depressed over lack of employment and the need to live off other people. Patient has not been employed due to recovery time from surgery. She quit her job and has not been able to find a job after her recovery. She feels worthless that she is unable to care for herself and work. 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 - Social history:: Smoking status: Patient/guardian denies using tobacco. - Ebola Screening: : Patient denies travel to an Ebola-affected area in the 21 days before illness onset. ROS: 13:10 Constitutional: Negative for fever, chills, and weight loss, Eyes: Negative for injury, pm1 pain, redness, and discharge, ENT: Negative for injury, pain, and discharge, Neck: Negative for injury, pain, and swelling, Cardiovascular: Negative for chest pain, palpitations, and edema, Respiratory: Negative for shortness of breath, cough, wheezing, and pleuritic chest pain, Abdomen/GI: Negative for abdominal pain, nausea, vomiting, diarrhea, and constipation, Back: Negative for injury and pain, : Negative for injury, bleeding, discharge, and swelling, MS/Extremity: Negative for injury and deformity, Skin: Negative for injury, rash, and discoloration, Neuro: Negative for headache, weakness, numbness, tingling, and seizure. 13:10 Psych: Positive for depression, suicidal ideation, Negative for homicidal ideation, insomnia. Exam: 13:10 Constitutional: This is a well developed, well nourished patient who is awake, alert, pm1 and in no acute distress. Head/Face: Normocephalic, atraumatic. Eyes: Pupils equal round and reactive to light, extra-ocular motions intact. Lids and lashes normal. Conjunctiva and sclera are non-icteric and not injected. Cornea within normal limits. Periorbital areas with no swelling, redness, or edema. ENT: Nares patent. No nasal discharge, no septal abnormalities noted. Tympanic membranes are normal and external auditory canals are clear. Oropharynx with no redness, swelling, or masses, exudates, or evidence of obstruction, uvula midline. Mucous membranes moist. Neck: Trachea midline, no thyromegaly or masses palpated, and no cervical lymphadenopathy. Supple, full range of motion without nuchal rigidity, or vertebral point tenderness. No Meningismus. Chest/axilla: Normal chest wall appearance and motion. Nontender with no deformity. No lesions are appreciated. Cardiovascular: Regular rate and rhythm with a normal S1 and S2. No gallops, murmurs, or rubs. Normal PMI, no JVD. No pulse deficits. Respiratory: Lungs have equal breath sounds bilaterally, clear to auscultation and percussion. No rales, rhonchi or wheezes noted. No increased work of breathing, no retractions or nasal flaring. Abdomen/GI: Soft, non-tender, with normal bowel sounds. No distension or tympany. No guarding or rebound. No evidence of tenderness throughout. Back: No spinal tenderness. No costovertebral tenderness. Full range of motion. Skin: Warm, dry with normal turgor. Normal color with no rashes, no lesions, and no evidence of cellulitis. MS/ Extremity: Pulses equal, no cyanosis. Neurovascular intact. Full, normal range of motion. 13:10 Neuro: Orientation: is normal, Motor: is normal, moves all fours. 13:10 Psych: Behavior/mood is depressed, Affect is flat, Oriented to person, place, time. Vital Signs: 12:00 BP 176 / 74; Pulse 76; Resp 17; Temp 98.3(TE); Pulse Ox 97% on R/A; Weight 123.38 kg tw2 (R); Height 5 ft. 3 in. (160.02 cm); Pain 5/10; 12:15 BP 130 / 52; Pulse 69; Resp 17; Temp 98.1(O); Pulse Ox 97% on R/A; mh5 16:15 BP 157 / 71; Pulse 70; Resp 17; Temp 98.3; Pulse Ox 99% on R/A; mc3 16:28 Pain 3/10; mc3 12:00 Body Mass Index 48.18 (123.38 kg, 160.02 cm) tw2 MDM: 12:15 Patient medically screened. pm1 13:22 Data reviewed: vital signs. Data interpreted: Pulse oximetry: on room air is 97 %. pm1 Interpretation: normal. 13:23 ED course: Pending [facility] Er evaluation. pm1 16:21 Counseling: I had a detailed discussion with the patient and/or guardian regarding: the pm1 historical points, exam findings, and any diagnostic results supporting the discharge/admit diagnosis, lab results, the need for outpatient follow up, to return to the emergency department if symptoms worsen or persist or if there are any questions or concerns that arise at home. 03/13 12:16 Order name: Acetaminophen; Complete Time: 13:22 pm1 03/13 12:16 Order name: Basic Metabolic Panel; Complete Time: 13:22 pm1 03/13 12:16 Order name: CBC with Diff; Complete Time: 13:07 pm1 03/13 12:16 Order name: ETOH Level; Complete Time: 13: pm03/13 12:16 Order name: Hepatic Function; Complete Time: 13:22 pm1 03/13 12:16 Order name: PT-INR; Complete Time: 13:07 pm03/13 12:16 Order name: Ptt, Activated; Complete Time: 13:07 pm03/13 12:16 Order name: Salicylate; Complete Time: 13:22 pm03/13 12:16 Order name: Urine Drug Screen; Complete Time: 13:22 pm03/13 12:16 Order name: EKG; Complete Time: 12:17 pm1 03/13 13:08 Order name: Urine Dipstick--Ancillary (enter results); Complete Time: 13:22 eb 03/13 13:09 Order name: Urine --Ancillary (enter results) eb 03/13 13:14 Order name: Diet Regular; Complete Time: 13:14 mh5 03/13 12:16 Order name: Urine Test (obtain specimen); Complete Time: 13:08 pm03/13 12:16 Order name: EKG - Nurse/Tech; Complete Time: 12:56 pm1 03/13 12:16 Order name: IV Saline Lock; Complete Time: 12:47 pm03/13 12:16 Order name: Labs collected and sent; Complete Time: 12:47 pm03/13 12:16 Order name: Urine Dipstick-Ancillary (obtain specimen); Complete Time: 13:08 pm1 03/13 15:27 Order name: Diet Regular; Complete Time: 15:27 rb1 Administered Medications: 16:14 Drug: Motrin 600 mg Route: PO; 3 16:28 Follow up: Pain 11/08 Adult 3 Disposition: 18:19 Co-signature as Attending Physician, Loki Judge MD. rn Disposition: 03/13/19 16:23 Discharged to Home. Impression: Acute stress reaction. - Condition is Stable. - Discharge Instructions: Stress and Stress Management, Major Depressive Disorder. - Medication Reconciliation Form, Thank You Letter, Antibiotic Education, Prescription Opioid Use form. - Follow up: Emergency Department; When: As needed; Reason: Worsening of condition. Follow up: Private Physician; When: 2 - 3 days; Reason: Recheck today's complaints, Continuance of care, Re-evaluation by your physician. - Problem is new. - Symptoms have improved. Signatures: Dispatcher [employer] EDMS Lola Aggarwal, RN RN iw Loki Judge MD MD rn Halle Singh, RN RN rb1 Gustavo Baltazar, YOUTH CORRECTIONS OFFICER YOUTH CORRECTIONS OFFICER pm1 Luz Martel RN RN tw2 Margarita Bermudez, RN RN mc3 Corrections: (The following items were deleted from the chart) 13:04 12:00 PSHx: Patuitary tumor removel; tw2 rb1 16:28 16:23 03/13/2019 16:23 Discharged to Home. Impression: Other recurrent depressive pm1 disorders. Condition is Stable. Forms are Medication Reconciliation Form, Thank You Letter, Antibiotic Education, Prescription Opioid Use. Follow up: Emergency Department; When: As needed; Reason: Worsening of condition. Follow up: Private Physician; When: 2 - 3 days; Reason: Recheck today's complaints, Continuance of care, Re-evaluation by your physician. Problem is new. Symptoms have improved. pm1 17:17 16:28 03/13/2019 16:23 Discharged to Home. Impression: Acute stress reaction. Condition rb1 is Stable. Discharge Instructions: Major Depressive Disorder. Forms are Medication Reconciliation Form, Thank You Letter, Antibiotic Education, Prescription Opioid Use. Follow up: Emergency Department; When: As needed; Reason: Worsening of condition. Follow up: Private Physician; When: 2 - 3 days; Reason: Recheck today's complaints, Continuance of care, Re-evaluation by your physician. Problem is new. Symptoms have improved. pm1
--- NOTE | 2019-03-13 16:24 | ER ---
Nurse's Notes [facility] Name: Luzma Lamar Age: 53 yrs Sex: Female : 1965 Arrival Date: 03/13/2019 Time: 11:48 Bed 14 Private MD: Diagnosis: Acute stress reaction Presentation: 03/13 11:54 Presenting complaint: Patient states: for the last 3 days i have been feeling really tw2 depressed and feeling like i wanted to hurt myself and last night i took the scissors into the bathroom with me to hurt myself but i didn't so i figured i better come in and get some help. for the last year i havent been able to find work and i have to depend on everyone else and it makes me feel worthless. Transition of care: patient was not received from another setting of care. Onset of symptoms was March 13, 2019. Risk Assessment: Do you want to hurt yourself or someone else? Patient reports desire/thoughts of hurting themselves or someone else. Provider notified. Initial Sepsis Screen: Does the patient meet any 2 criteria? No. Patient's initial sepsis screen is negative. Does the patient have a suspected source of infection? No. Patient's initial sepsis screen is negative. Care prior to arrival: None. 11:54 Method Of Arrival: Ambulatory tw2 11:54 Acuity: ELIANA 2 tw2 11:55 Note pt states "i was just going to use the scissors to slit my wrist but i have no tw2 real plan". Triage Assessment: 11:58 General: Appears in no apparent distress. obese, Behavior is crying. Pain: Complains of tw2 pain in right and left knee. ORDER ADMINISTRATOR: 12:00 LMP 02/28/2019 tw2 Historical: - Allergies: 12:00 PENICILLINS; tw2 12:00 Plaquenil; tw2 12:00 Lyrica; tw2 - PMHx: 12:00 Back pain; Cervical disc problem; connective tissue disease; Depression; Diabetes - tw2 NIDDM; GERD; Hypertension; Migraines; Ulcers; - PSHx: 12:00 ; Appendectomy; Knee surgery; tw2 12:15 pituitary tumor removed; rb1 - Immunization history:: Adult Immunizations. - Social history:: Smoking status: Patient/guardian denies using tobacco. - Ebola Screening: : Patient denies travel to an Ebola-affected area in the 21 days before illness onset. Screenin:01 Abuse screen: Denies threats or abuse. Nutritional screening: No deficits noted. tw2 Tuberculosis screening: No symptoms or risk factors identified. Fall Risk None identified. Assessment: 12:15 General: Appears distressed, obese, Behavior is cooperative, anxious, crying. Pain: rb1 Denies pain. Neuro: Level of Consciousness is awake, alert, obeys commands, Oriented to person, place, time, situation. Cardiovascular: Capillary refill < 3 seconds is brisk in bilateral fingers. Respiratory: Airway is patent Respiratory effort is even, unlabored, Respiratory pattern is regular, symmetrical. GI: Reports diarrhea, nausea. : No signs and/or symptoms were reported regarding the genitourinary system. Derm: Skin is pink, warm \\T\\ dry. Musculoskeletal: Range of motion: intact in all extremities. 12:15 Reassessment: Pt. denies having a plan. She reports losing her 4 years ago and rb1 that is when she got depressed. She doesn't want to do anything to hurt herself that is why she came for help. She does have a support system at home. 13:11 Reassessment: Patient appears in no apparent distress at this time. Patient and/or rb1 family updated on plan of care and expected duration. Pain level reassessed. Patient is alert, oriented x 3, equal unlabored respirations, skin warm/dry/pink. Pt. is no longer crying. Friend at bedside. 14:10 Reassessment: Patient appears in no apparent distress at this time. No changes from rb1 previously documented assessment. Pt. is playing on her telephone. 15:09 Reassessment: Patient appears in no apparent distress at this time. Patient and/or rb1 family updated on plan of care and expected duration. Pain level reassessed. Patient is alert, oriented x 3, equal unlabored respirations, skin warm/dry/pink. Friend remains at bedside. 16:00 Reassessment: Patient appears in no apparent distress at this time. No changes from rb1 previously documented assessment. 16:55 Reassessment: Patient appears in no apparent distress at this time. Patient and/or rb1 family updated on plan of care and expected duration. Pain level reassessed. Patient is alert, oriented x 3, equal unlabored respirations, skin warm/dry/pink. Psych: 11:56 Subjective: Patient's mood is sad. Objective: Patient is cooperative, Speech is normal, tw2 Affect is appropriate. Suicide Risk Assessment: Sad Person Scale: Sex of patient: Female: Score 0 points. Age of patient: Score 0 point if patient falls outside of specified age parameters. Depression: Score 1 point if signs of depression are present. Previous Attempt: Score 1 point if patient has previously attempted suicide. Substance Abuse: Score 0 point if patient does not abuse alcohol or drugs. Rational Thinking: Score 0 point if patient has rational thinking. Social Support: Score 0 if social support is present/available. Organized Plan: Score 0 if patient did not have an organized plan in place. Relationship: Score 1 point if patient is , , , or for a single male Chronic Sickness: Score 1 point if patient has illness, chronic, debilitating, or severe. 12:01 Pt denies substance abuse Patient uses. tw2 12:15 Interventions: Removed personal items and placed in bag. Patient placed in hospital rb1 gown. Searched person for dangerous items. Belonging list filled out. 12:15 Commitment: Patient will be a voluntary commitment. rb1 15:30 Safety Checks: Personal items have been removed. Door is open. Visitors are present. pt mc3 sitting in bed. c/o pain at this time. 15:44 Safety Checks: [facility] at bedside. 3 Vital Signs: 12:00 BP 176 / 74; Pulse 76; Resp 17; Temp 98.3(TE); Pulse Ox 97% on R/A; Weight 123.38 kg tw2 (R); Height 5 ft. 3 in. (160.02 cm); Pain 5/10; 12:15 BP 130 / 52; Pulse 69; Resp 17; Temp 98.1(O); Pulse Ox 97% on R/A; mh5 16:15 BP 157 / 71; Pulse 70; Resp 17; Temp 98.3; Pulse Ox 99% on R/A; mc3 16:28 Pain 3/10; mc3 12:00 Body Mass Index 48.18 (123.38 kg, 160.02 cm) tw2 ED Course: 11:48 Patient arrived in ED. as 11:56 Triage completed. tw2 11:56 Arm band placed on. tw2 12:00 Safety checks: Items removed: yes. Door open/sign placed on door: yes. Family/friend mh5 present: no. Sitter present: Yes. 12:15 Gustavo Baltazar, SOFI is PHCP. pm1 12:15 Loki Judge MD is Attending Physician. pm1 12:15 Patient has correct armband on for positive identification. Placed in gown. Bed in low rb1 position. Side rails up X 1. Warm blanket given. 12:15 Safety checks: Items removed: yes. Door open/sign placed on door: yes. Family/friend mh5 present: yes. Family/friends encouraged to stay with patient. Sitter present: Yes. 12:20 Halle Singh, RN is Primary Nurse. rb1 12:30 Safety checks: Items removed: yes. Door open/sign placed on door: yes. Family/friend mh5 present: yes. Family/friends encouraged to stay with patient. Sitter present: Yes. 12:30 Initial lab(s) drawn, by me, sent to lab. Urine collected: clean catch specimen, clear, mh5 Amount Voided: 240mL. Inserted saline lock: 22 gauge in left antecubital area, using aseptic technique. Blood collected. 13:00 Safety checks: Items removed: yes. Door open/sign placed on door: yes. Family/friend mh5 present: yes. Family/friends encouraged to stay with patient. Sitter present: Yes. 13:08 Acetaminophen Sent. 5 13:08 Basic Metabolic Panel Sent. 5 13:08 Hepatic Function Sent. 5 13:08 Salicylate Sent. 5 13:08 Urine Drug Screen Sent. 5 13:14 Urine --Ancillary (enter results) Sent. 5 13:14 Urine Dipstick--Ancillary (enter results) Sent. mh5 13:15 Safety checks: Items removed: yes. Door open/sign placed on door: yes. Family/friend mh5 present: yes. Family/friends encouraged to stay with patient. Sitter present: Yes. 13:30 Safety checks: Items removed: yes. Door open/sign placed on door: yes. Family/friend mh5 present: yes. Family/friends encouraged to stay with patient. Sitter present: Yes. 13:32 called the [facility] spoke with Tia who will page the screener nylon machine operator to come eb evaluate patient. 13:45 Safety checks: Items removed: yes. Door open/sign placed on door: yes. Family/friend mh5 present: yes. Family/friends encouraged to stay with patient. Sitter present: Yes. 13:58 Diet: Patient given a regular meal tray. mh5 14:00 Safety checks: Items removed: yes. Door open/sign placed on door: yes. Family/friend mh5 present: no. Sitter present: Yes. 14:15 Safety checks: Items removed: yes. Door open/sign placed on door: yes. Family/friend mh5 present: no. Sitter present: Yes. 14:30 Safety checks: Items removed: yes. Door open/sign placed on door: yes. Family/friend mh5 present: no. Sitter present: Yes. 14:45 Safety checks: Items removed: yes. Door open/sign placed on door: yes. Family/friend mh5 present: no. Sitter present: Yes. 15:00 Safety checks: Items removed: yes. Door open/sign placed on door: yes. Family/friend mh5 present: no. Sitter present: Yes. 15:15 Safety Checks: Personal items have been removed. The door is open or patient has been mc3 placed in a hallway bed/chair. A family member and/or friend is present and encouraged to stay. Other: Assumed care of patient. Patient is alert and oriented x4, family member at bedside. C/O pain at this time. [employer] ADMINISTRATOR notifed, new orders received for motrin 600 once. Will continue to monitor patient. 15:15 Safety checks: Items removed: yes. Door open/sign placed on door: yes. Family/friend mh5 present: yes. Sitter present: Yes. 15:29 Report given to DEBBIE Avila. rb1 15:30 Safety Checks: Personal items have been removed. The door is open or patient has been mc3 placed in a hallway bed/chair. A family member and/or friend is present and encouraged to stay. 15:45 Safety Checks: Personal items have been removed. The door is open or patient has been mc3 placed in a hallway bed/chair. A family member and/or friend is present and encouraged to stay. 16:00 Safety Checks: Personal items have been removed. The door is open or patient has been mc3 placed in a hallway bed/chair. A family member and/or friend is present and encouraged to stay. 16:15 Safety Checks: Personal items have been removed. The door is open or patient has been mc3 placed in a hallway bed/chair. A family member and/or friend is present and encouraged to stay. 16:30 Safety Checks: Personal items have been removed. The door is open or patient has been mc3 placed in a hallway bed/chair. A family member and/or friend is present and encouraged to stay. 16:45 Safety Checks: Personal items have been removed. The door is open or patient has been mc3 placed in a hallway bed/chair. A family member and/or friend is present and encouraged to stay. 17:00 Safety Checks: Personal items have been removed. The door is open or patient has been mc3 placed in a hallway bed/chair. A family member and/or friend is present and encouraged to stay. Other: pt to be discharged. iv removed. security to bring patient's belongings. discharge instructions given. 17:00 No provider procedures requiring assistance completed. IV discontinued, intact, rb1 bleeding controlled, No redness/swelling at site. Pressure dressing applied. Administered Medications: 16:14 Drug: Motrin 600 mg Route: PO; mc3 16:28 Follow up: Pain 11/08 Adult mc3 Outcome: 16:23 Discharge ordered by . pm1 17:00 Patient left the ED. rb1 17:00 Discharged to home ambulatory, with friend. rb1 17:00 Condition: stable 17:00 Discharge instructions given to patient, Instructed on discharge instructions, follow up and referral plans. Demonstrated understanding of instructions, follow-up care, Prescriptions given X none Signatures: Meri Panchal Rebecca, RN RN rb1 Gustavo Baltazar NP [employer] ADMINISTRATOR pm1 Luz Martel RN RN tw2 Ladi Panchal [facility] Cassy Silver Megan, RN RN mc3 Corrections: (The following items were deleted from the chart) 13:04 12:00 PSHx: Patuitary tumor removel; tw2 rb1 13:21 12:00 BP 130 / 52; Pulse 69bpm; Resp 17bpm; Pulse Ox 97% RA; Temp 98.1F Oral; mh5 mh5 13:24 11:54 Risk Assessment: Do you want to hurt yourself or someone else? Patient reports no tw2 desire to harm self or others. tw2 17:18 17:17 Patient left the ED. rb1 rb1
[2019-03-13 22:07] LABS: Urine Specific Gravity 1.025 (1.005-1.030)
--- NOTE | 2019-03-13 22:15 | EKG ---
Test Date: 2019-03-13 Test Time: 12:59:44 Residential Manager: NISSA MEASUREMENT RESULTS: Intervals: Rate: 69 MA: 156 QRSD: 82 QT: 386 QTc: 413 [place]: P: 66 MA: 156 QRS: 76 T: 59 INTERPRETIVE STATEMENTS: Normal sinus rhythm Normal ECG Compared to ECG 12/07/2018 17:02:54 No significant changes Electronically Signed On 03-13-19 22:14:57 CDT by Koby Smith
== END 2019-03-13 17:17 | disposition home or self-care (01) ==
LOC: ER 11:47
DX: F43.0 Acute stress reaction (principal); R45.851 Suicidal ideations; I10 Essential (primary) hypertension; Z88.0 Allergy status to penicillin; Z88.8 Allergy status to other drugs, medicaments and biological substances
CPT/HCPCS: 36415; 80048; 80076; 80307; 80320; 80329; 81003; 81025; 85025; 85610; 85730; 93005; 99284